=== PATIENT | male | born 1945 | race Caucasian/White ===

== ENCOUNTER 2019-10-02 03:41 | Inpatient (IN) | payer MEDICARE, OTHER ==
[~2019-10-02] VITALS: Ht 172.7 cm; Wt 73.1 kg
--- NOTE | 2019-10-02 03:45 | NUR ---
PT AAOX1, BIBRA C/O HYPERGLYCEMIC 461 UPON CHECKING. PT PLACED ON MONITOR AND PULSE OX. MD AT BEDSIDE FOR EVAL. NO ACUTE DISTRESS NOTED. VSS.
[2019-10-02] MEDS ORDERED: ACETAMINOPHEN 650 MG/SUPP.RECT RC ONE ×2 (04:02→04:30)
[2019-10-02] MEDS ORDERED: INSULIN REGULAR, HUMAN 100 UNIT/ML 10 ML VIAL ONE (04:06)
--- NOTE | 2019-10-02 04:17 | NUR ---
DEREK LEPE PT SON
[2019-10-02 04:27] LABS: ABG BASE EXCESS -1.6 mmol/L; ABG OXYGEN SATURATION 94.5 % (92.0-98.5); ABG PCO2 32.3 mmHg (35.0-45.0); ABG PH 7.445 (7.350-7.450); ABG PO2 83.9 mmHg (75.0-100.0); AaDO2 77.6 mmHg; COHb 0.9 % (0.5-1.5); MetHb 0.3 % (0.0-1.5); O2Hb 93.4 % (94.0-97.0); SITE, ABG Right Radial; VENT MODE, BG 2LNC
[2019-10-02] MEDS ORDERED: IV NS 0.9% 1,000 ML IV ONE ×2 (04:30→05:30)
[2019-10-02] MEDS ORDERED: INSULIN REGULAR, HUMAN 100 UNIT/ML 10 ML VIAL IV ONE (04:30)
--- NOTE | 2019-10-02 04:33 | NUR ---
BROUGHT TO CT
[2019-10-02 04:41] LABS: BASOPHILS # (AUTO) 0.1 /CMM (0.0-0.2); BASOPHILS % (AUTO) 0.5 % (0.0-2.0); EOSINOPHILS % (AUTO) 0.4 % (0.0-6.0); HEMATOCRIT 44 % (39-51); HEMOGLOBIN 13.3 g/dL (13.5-17.5); LYMPHOCYTES # (AUTO) 2.2 /CMM (0.8-4.8); MEAN CORPUSCULAR HGB CONC 31 g/dl (31.0-36.0); MEAN CORPUSCULAR VOLUME 80 fL (80-96); MONOCYTES # (AUTO) 1.3 /CMM (0.1-1.30); NEUTROPHILS # (AUTO) 17.8 /CMM (1.8-8.9); NEUTROPHILS % (AUTO) 83.1 % (43.0-81.0); PLATELET COUNT (AUTO) 341 /CMM (150-450); RED BLOOD CELL COUNT(AUTO) 5.46 MIL/uL (4.5-6.0); WHITE BLOOD COUNT (AUTO) 21.5 K/uL (4.3-11.0)
[2019-10-02 04:44] LABS: APPEARANCE,URINE CLEAR (CLEAR); BILIRUBIN,URINE NEGATIVE (NEGATIVE); BLOOD, URINE TRACE-INTA Ery/uL (NEGATIVE); COLOR,URINE YELLOW (YELLOW); KETONES,URINE NEGATIVE (NEGATIVE); LEUKOCYTE ESTERASE ,URINE NEGATIVE (NEGATIVE); NITRITE, URINE NEGATIVE (NEGATIVE); PH,URINE 5.5 (5.0-8.0); PROTEIN,URINE 30 mg/dl (NEGATIVE); UGLUCOSE >=1000 mg/dL (NEGATIVE); UROBILINOGEN,URINE 0.2 EU/dL (0.2)
[2019-10-02 04:53] LABS: RBC,URINE 0-2 /HPF (0-2)
[2019-10-02 04:54] LABS: BACTERIA,URINE Few /HPF (None Seen); SQUAMOUS EPITHELIAL CELL,UR Few /HPF (None Seen)
[2019-10-02 04:55] LABS: CARBON DIOXIDE 27 mmol/L (21-32); POTASSIUM 4.2 mmol/L (3.5-5.1)
[2019-10-02 04:58] LABS: ALANINE AMINOTRANSFERASE 37 U/L (12-78); ALBUMIN 2.7 g/dL (3.4-5.0); ALKALINE PHOSPHATASE 109 U/L (46-116); ASPARTATE AMINOTRANSFERASE 16 U/L (15-37); BILIRUBIN,DIRECT 0.1 mg/dL (0.0-0.2); BILIRUBIN,TOTAL 0.4 mg/dL (0.2-1.0); TOTAL PROTEIN, SERUM 8.1 g/dL (6.4-8.2)
--- NOTE | 2019-10-02 05:04 | NUR ---
LACTIC 4.8
[2019-10-02 05:07] LABS: CALCIUM, SERUM 8.3 mg/dL (8.5-10.1); CHLORIDE 120 mmol/L (98-107); CREATININE 3.4 mg/dL (0.6-1.3); GLUCOSE 519 mg/dL (74-106); SODIUM SERUM 156 mmol/L (136-145); UREA NITROGEN, BLOOD 75 mg/dL (7-18)
[2019-10-02] MEDS ORDERED: VANCOMYCIN 1 GM VIAL ONE ×2 (05:12→05:14)
[2019-10-02] MEDS ORDERED: PIPERACILLIN /TAZOBACTAM 3.375 G VIAL IV ONE (05:12)
--- NOTE | 2019-10-02 05:22 | NUR ---
DR. ROE HANKS
--- NOTE | 2019-10-02 05:24 | NUR ---
BED ASSIGNMENT 109
[2019-10-02] MEDS ORDERED: PIPERACILLIN /TAZOBACTAM 3.375 G in IV D5W 50 ML IV ONE (05:30)
[2019-10-02] MEDS ORDERED: VANCOMYCIN 1 GM in IV D5W 250 ML IV ONE (05:30)
--- NOTE | 2019-10-02 05:48 | NUR ---
REPORT GIVEN TO ELIAS PULIDO FOR BANDAR
--- NOTE | 2019-10-02 06:05 | NUR ---
PATIENT IS CLEANED WITH LUKEWARM WATER AND SOAP. PT IS TURNED CHANGED INTO CLEAN CLOTHING. PATIENT IS KEPT COMFORTABLE.
[2019-10-02 06:21] VITALS: BP 133/61
--- NOTE | 2019-10-02 06:21 | NUR ---
RN ADMITTING NOTE RECEIVED PATIENT FROM ER VIA RNEY; ADMITTING DIAGNOSIS OF PNEUMONIA, SEPSIS R/O COVID19; RESULTS PENDING. PATIENT ASLEEP, NON VERBAL BUT AROUSABLE TO TOUCH. IN NO S/SX OF ACUTE DISTRESS AT THIS TIME. NO SOB NOTED. PATIENT'S BREATHING IS EVEN AND UNLABORED, SATURATING 97% ON ROOM AIR. NOTED IV SITE ON LFA #20, RFA #18 AND RAC #20; FLUSHING AND PATENT, SALINE LOCKED. NO S/S OF INFECTION OR INFILTRATION. NOTED PERIANAL REDNESS, SCABS AT LEFT HIP AND ANTERIOR LEFT LEG, AND BILATERAL HEEL REDNESS. PICTURE TAKEN AND PLACED IN CHART. PATIENT KEPT CLEAN, DRY AND COMFORTABLE. SAFETY MEASURES IMPLEMENTED PER PROTOCOL. PATIENT BED ALARM IS ON. HEAD OF BED ELEVATED. BED IS LOCKED, IN LOWEST POSITION AND SIDE RAILS UP. CALL LIGHT WITHIN REACH OF THE PATIENT. ISOLATION PRECAUTIONS IN PLACE. WILL CONTINUE TO MONITOR AND REASSESS FOR ANY CHANGES. WILL CALL DR AU FOR ADMITTING ORDERS.
--- NOTE | 2019-10-02 06:55 | NUR ---
RN NOTE TELEPHONE CALL TO DR AU, NOTIFIED OF ADMISSION AND PROVIDED PERTINENT INFO. AWAITING MD ORDERS. WILL ENDORSE TO AM SHIFT RN FOR CONTINUATION OF CARE.
--- NOTE | 2019-10-02 07:30 | NUR ---
RN/HERMELINDO RECEIVED PATIENT IN BED. NO ACUTE DISTRESS NOTED. PATIENT AWAKE, BUT NOT ALERT. PATIENT NONVERBAL AND UNABLE TO FOLLOW INSTRUCTIONS. PATIENT ON ROOM AIR, SATURATING WELL AT 99%. PATIENT ON TELEMTRY MONITOR, SINUS RHYTHM NOTED. PATIENT RIGHT FOREARM IV ACCESS INTACT, PATENT, FLUSHED WELL. PATIENT SAFETY MAINTAINED. CALL LIGHT WITHIN REACH. WILL CONTINUE TO MONITOR.
[2019-10-02 08:00] VITALS: BP 128/68
[2019-10-02] MEDS ORDERED: MAGN400O6 PO (08:04)
[2019-10-02] MEDS ORDERED: POLY17PO4 PO (08:04)
[2019-10-02] MEDS ORDERED: LINA5TAB PO (08:04)
[2019-10-02] MEDS ORDERED: QUET25TA PO ×2 (08:04)
[2019-10-02] MEDS ORDERED: MIRT15TA7 PO (08:04)
[2019-10-02] MEDS ORDERED: SIMV-46 PO (08:04)
[2019-10-02] MEDS ORDERED: BENA20TA9 PO (08:04)
[2019-10-02] MEDS ORDERED: METO25TA20 PO (08:04)
[2019-10-02] MEDS ORDERED: NITR0.4T48 SL (08:04)
[2019-10-02] MEDS ORDERED: DOCU-270 PO (08:04)
[2019-10-02] MEDS ORDERED: MULT-24 PO (08:04)
[2019-10-02] MEDS ORDERED: NATE60TA PO (08:04)
[2019-10-02] MEDS ORDERED: NA P133E RC (08:04)
[2019-10-02] MEDS ORDERED: ACET-868 PO (08:04)
[2019-10-02] MEDS ORDERED: FOLI0.4T2 PO (08:04)
[2019-10-02] MEDS ORDERED: ISOS30TA9 PO (08:04)
[2019-10-02] MEDS ORDERED: PANT20TA2 PO (08:04)
[2019-10-02] MEDS ORDERED: CRAN3875 PO (08:04)
[2019-10-02] MEDS ORDERED: INSU100V10 SQ (08:04)
[2019-10-02] MEDS ORDERED: ASPI-1169 PO (08:04)
[2019-10-02] MEDS ORDERED: CLOP75TA15 PO (08:04)
[2019-10-02] MEDS ORDERED: MAG HYDROX/AL HYDROX/SIMETH 30 ML UDC PO PRN (08:30)
[2019-10-02] MEDS ORDERED: MAGNESIUM HYDROXIDE 30 ML UDC PO PRN ×2 (08:30)
[2019-10-02] MEDS ORDERED: DEXTROSE 50%-WATER 50 ML DISP.SYRIN IV PRN (08:30)
[2019-10-02] MEDS ORDERED: Z GUARD REMEDY 2 OZ OINT TP PRN (08:30)
[2019-10-02] MEDS ORDERED: ACETAMINOPHEN 325 MG TABLET PO PRN (08:30)
[2019-10-02] MEDS ORDERED: ONDANSETRON HCL/PF 4 MG/2 ML VIAL IVP PRN (08:30)
[2019-10-02] MEDS ORDERED: ZOLPIDEM TARTRATE 5 MG TABLET PO PRN (08:30)
[2019-10-02] MEDS: ASPIRIN 81 MG TAB.CHEW PO SCH (09:00)
[2019-10-02] MEDS: PANTOPRAZOLE 40 MG/PACK PACK PO SCH (09:00)
[2019-10-02] MEDS: METOPROLOL TARTRATE 25 MG TABLET PO SCH (09:00)
[2019-10-02] MEDS: CLOPIDOGREL BISULFATE 75 MG TABLET PO SCH (09:00)
[2019-10-02] MEDS: DOCUSATE SODIUM 100 MG CAPSULE PO SCH ×2 (09:00→17:00)
[2019-10-02] MEDS: POLYETHYLENE GLYCOL 3350 17 GM POWD.PACK PO SCH (09:00)
[2019-10-02] MEDS: LINAGLIPTIN 5 MG TABLET PO SCH (09:00)
[2019-10-02] MEDS: QUETIAPINE FUMARATE 25 MG TABLET PO SCH ×4 (09:00→22:00)
[2019-10-02] MEDS: NATEGLINIDE 60 MG TABLET PO SCH ×3 (09:00→17:00)
[2019-10-02] MEDS: BLOOD SUGAR DIAGNOSTIC 1 EACH STRIP IN SCH ×4 (09:03→21:50)
[2019-10-02] MEDS: INSULIN REGULAR, HUMAN 100 UNIT/ML 3 ML VIAL SQ PRN ×3 (09:16→22:06)
[2019-10-02] MEDS ORDERED: IV D5/0.45 NACL 1,000 ML IV ONE (10:00)
--- NOTE | 2019-10-02 10:14 | NUR ---
RN/HERMELINDO PATIENT AWAKE, BUT NOT ALERT. PATIENT UNABLE TO FOLLOW INSTRUCTIONS. PATIENT UNABLE TO SWALLOW DUE TO RISK FOR ASPIRATION. SO NON-ADMINISTERED MONRING PO MEDICATIONS. ORDERING SWALLOW EVALUATION. DOCTOR DEVIKA NOTIFIED.
[2019-10-02 11:59] LABS: C-REACTIVE PROTEIN 9.1 mg/dL (0.0-0.9)
[2019-10-02 12:00] VITALS: BP 118/76
--- NOTE | 2019-10-02 13:30 | NUR ---
SPEECH THERAPIST (AVELINA) TO DO SWALLOW EVALUATION TOMORROW MORNING. STATES THAT PATIENT NOT ALERT DUE TO MENTAL STATUS IN ORDER TO EVALUATE. PHYSICAL THERAPIST TO CONSULT TOMORROW MORNING WELL.
--- NOTE | 2019-10-02 14:47 | NUR ---
RN/HERMELINDO PATIENT IN STABLE CONDITION. ENDORSED PLAN OF CARE TO IQRA FOR CONTINUITY OF CARE
[2019-10-02 16:00] VITALS: BP 121/74
--- NOTE | 2019-10-02 16:15 | NUR ---
RN OPENING NOTE PT RECEIVED IN BED , RESPONSIVE TO LIGHT PAIN, NO S/S OF DISTRESS, SAFETY MEASURES IN PLACE , WILL CONTINUE TO MONITOR.
--- NOTE | 2019-10-02 18:01 | NUR ---
Patient is poor historian, has hx of Alzheimer's dementia,resides at [facility] [place] [phone]. He requires max to total assist with adl's. Current dc plan is to return to SNF when discharge. Addendum: 10/02/19 at 1802 by SUGAR ARMAS RN Amended: Links added.
--- NOTE | 2019-10-02 19:20 | NUR ---
RN CLOSING NOTE PT REMAINED STABLE REPORT GIVEN TO INCOMING SHIFT FOR BANDAR.
--- NOTE | 2019-10-02 19:30 | NUR ---
RN NOTES RECEIVED PT. AWAKE. ON BED, A/OX2, NOT IN DISTRESS, NO PAIN NOTED, BED IN LOW POSITION F/C DRAINING CLEAR YELLOW URINE, SIDERAILSUPX2, CONTINUE TO MONITOR
[2019-10-02 20:00] VITALS: BP 110/59
--- NOTE | 2019-10-02 21:00 | NUR ---
RN NOTES PT. WAS TRANSFERRED TO [facility], PT. IS COVID NEGATIVE,EVENING CARE RENDERED, PT. IS NOT IN DISTRESS, NO PAIN NOTED, BEDSIDE REPORT WAS GIVEN TO RN FABIO .
[2019-10-02 21:15] VITALS: BP 123/83
--- NOTE | 2019-10-02 21:15 | NUR ---
MS RN NOTES RECEIVED REPORT FROM TESS CANDELARIA,TRANSFER FROM TELE1,ALERT X1,CONFUSED,WITH DIAGNOSIS OF PNA/SEPSIS.COVID TEST NEGATIVE.NOTED PATIENT HAVING COUGH AND SLIGHT TEMP 99.4,WITH SALINE LOCK LEFT FOREARM #20 INTACT AND PATENT.NPO STATUS FOR SWALLOW EVAL IN THE MORNING.TRYING TO GET OUT OF BED.PLACE IN ROOM 309-1 WITH SITTER.WILL CONTINUE TO MONITOR STATUS.
--- NOTE | 2019-10-02 21:25 | NUR ---
MS RN NOTES MD FORTUNE WAS PAGE, AWAITING TO CALL BACK.
--- NOTE | 2019-10-02 21:30 | NUR ---
MS RN NOTES DR FORTUNE CALLED,MADE AWARE THAT PATIENT ON NPO STATUS,WITH ORDER FOR IVF AND SITTER FOR SAFETY NOTED AND CARRIED OUT.
--- NOTE | 2019-10-02 21:49 | NUR ---
MS RN NOTES STARTED ON NS AT 75ML/HR RATE ORDERED.
--- NOTE | 2019-10-02 21:50 | NUR ---
MS RN NOTES STARTED ON MAXIPIME 1GM IVPB ORDERED,
[2019-10-02] MEDS ORDERED: IV NS 0.9% 1,000 ML IV PRN (22:00)
[2019-10-02] MEDS: SIMVASTATIN 20 MG TABLET PO SCH (22:00)
[2019-10-02] MEDS ORDERED: CEFEPIME 1 GM in IV D5W 50 ML IV SCH (22:00)
[2019-10-02] MEDS: INSULIN GLARGINE, 100 UNIT/ML CARTRIDGE SQ SCH (22:00)
[2019-10-02] MEDS: MIRTAZAPINE 15 MG TABLET PO SCH (22:00)
--- NOTE | 2019-10-02 22:30 | NUR ---
MS PULIDO NOTES ACCU-CHECK BLOOD SUGAR CHECK 209,HUMULIN R 3 UNITS AND LANTUS 15 UNITS HELD,NPO STATUS,FOR SWALLOW EVAL IN THE MORNING Addendum: 10/03/19 at 0133 by FABIO HOBSON RN HUMULIN 4 UNITS HELD
[2019-10-02] MEDS: DOXYCYCLINE 100 MG in IV NS 0.9% 100 ML IV SCH (23:00)
--- NOTE | 2019-10-02 23:00 | NUR ---
MS RN NOTES STARTED ON VIBRAMYCIN IV ORDERED.
--- NOTE | 2019-10-03 00:30 | NUR ---
MS RN NOTES SALINE LOCK RIGHT FOREARM INFILTRATED,NEW SALINE LOCK PLACE ON RIGHT FORE ARM #20.
[2019-10-03] MEDS ORDERED: ACETAMINOPHEN 650 MG/SUPP.RECT RC PRN (02:00)
--- NOTE | 2019-10-03 05:30 | NUR ---
MS RN NOTES ACCU-CHECK BLOOD SUGAR CHECK 221,HUMULIN R 4 UNITS HELD,PATIENT IS TOTALLY NOTHING BY MOUTH,HIG RISK FOR ASPIRATION.FOR SWALLOW EVALUATION TODAY.
[2019-10-03] MEDS: BLOOD SUGAR DIAGNOSTIC 1 EACH STRIP IN SCH ×4 (05:33→21:59)
[2019-10-03] MEDS: INSULIN REGULAR, HUMAN 100 UNIT/ML 3 ML VIAL SQ PRN ×2 (05:34→22:00)
--- NOTE | 2019-10-03 06:13 | NUR ---
MS RN NOTES ON BED CALM THIS TIME,DVT PUMP IN USED FOR DVT SCORE OF 5.ON PLAVIX BUT WILL ENDORSE TO DAY NURSE TO FOLLOW WITH MD FOR DVT CHEMICAL PROPHYLAXIS.SITTER AT BEDSIDE FOR SAFETY.MORNING CARE ADMINISTER BY APOLINAR GUY TOLERATED WELL.IVF INFUSING WELL ON RFA IV ACCESS.KEPT NPO ORDERED TILL SEEN BY ST FOR SWALLOW EVAL.IN NO ACUTE DISTRESS.LATEST ORAL TEMPERATURE 99.4.IN NO ACUTE DISTRESS.WILL ENDORSE TO DAY NURSE FOR BANDAR.
[2019-10-03 06:55] LABS: BASOPHILS # (AUTO) 0.1 /CMM (0.0-0.2); BASOPHILS % (AUTO) 0.4 % (0.0-2.0); EOSINOPHILS % (AUTO) 1.3 % (0.0-6.0); HEMATOCRIT 39 % (39-51); HEMOGLOBIN 12.1 g/dL (13.5-17.5); LYMPHOCYTES # (AUTO) 1.9 /CMM (0.8-4.8); LYMPHOCYTES % (AUTO) 11.3 % (20.0-44.0); MEAN CORPUSCULAR HGB CONC 31 g/dl (31.0-36.0); MEAN CORPUSCULAR VOLUME 79 fL (80-96); MONOCYTES % (AUTO) 6.1 % (2.0-12.0); NEUTROPHILS # (AUTO) 13.2 /CMM (1.8-8.9); NEUTROPHILS % (AUTO) 80.9 % (43.0-81.0); PLATELET COUNT (AUTO) 258 /CMM (150-450); RED BLOOD CELL COUNT(AUTO) 4.97 MIL/uL (4.5-6.0); WHITE BLOOD COUNT (AUTO) 16.4 K/uL (4.3-11.0)
[2019-10-03] MEDS: PANTOPRAZOLE 40 MG/PACK PACK PO SCH (07:30)
--- NOTE | 2019-10-03 07:30 | NUR ---
rn notes patient received on 2L nasal cannula, a/o x0-1, enamorado present and is draining. NPO at this time and has a swallow eval pending. NS @ 75 ml per hour @ FA 20. Bed at the lowest setting, call light within reach, side rails up x2.
[2019-10-03 07:48] LABS: CALCIUM, SERUM 7.7 mg/dL (8.5-10.1); CREATININE 1.8 mg/dL (0.6-1.3); GLUCOSE 286 mg/dL (74-106); MAGNESIUM 2.3 mg/dL (1.8-2.4); PHOSPHORUS 3.2 mg/dL (2.5-4.9); UREA NITROGEN, BLOOD 46 mg/dL (7-18)
[2019-10-03 07:53] LABS: CARBON DIOXIDE 24 mmol/L (21-32)
[2019-10-03] MEDS: ASPIRIN 81 MG TAB.CHEW PO SCH (08:09)
[2019-10-03 08:10] LABS: SODIUM SERUM 161 mmol/L (136-145)
[2019-10-03] MEDS: DOCUSATE SODIUM 100 MG CAPSULE PO SCH ×2 (08:10→16:26)
[2019-10-03] MEDS: QUETIAPINE FUMARATE 25 MG TABLET PO SCH ×4 (08:10→22:00)
[2019-10-03] MEDS: METOPROLOL TARTRATE 25 MG TABLET PO SCH (08:10)
[2019-10-03] MEDS: POLYETHYLENE GLYCOL 3350 17 GM POWD.PACK PO SCH (08:10)
[2019-10-03] MEDS: CLOPIDOGREL BISULFATE 75 MG TABLET PO SCH (08:10)
[2019-10-03 08:11] LABS: CHLORIDE 126 mmol/L (98-107)
[2019-10-03] MEDS: NATEGLINIDE 60 MG TABLET PO SCH ×3 (08:11→16:26)
[2019-10-03] MEDS: LINAGLIPTIN 5 MG TABLET PO SCH (08:11)
--- NOTE | 2019-10-03 08:46 | NUR ---
WOUND CARE CONSULT: PT PRESENTS WITH DRY SCRATCHES AND SURGICAL SCAR TO LOWER BACK/SACRUM, PRESENT ON ADMISSION. POWELL CATH NOTED. PT MOVES IN BED ALMOST CONSTANTLY. SITTER AT BEDSIDE. WILL SEE PRN.
[2019-10-03] MEDS: CEFEPIME 2 GM in IV D5W 100 ML IV SCH (09:23)
[2019-10-03] MEDS: IV 1/2NS 1000 ML 1,000 ML IV SCH (11:00)
[2019-10-03] MEDS: DOXYCYCLINE 100 MG in IV NS 0.9% 100 ML IV SCH ×2 (12:00→22:13)
[2019-10-03 12:36] LABS: CHOLESTEROL 112 mg/dL (<200); CREATINE KINASE, TOTAL 537 U/L (39-308); HDL CHOLESTEROL 26 mg/dL (40-60); LDL 55 mg/dL (0-99); TRIGLYCERIDES 131 mg/dL (30-150)
--- NOTE | 2019-10-03 17:55 | NUR ---
rn notes patient remains on 2L nasal cannula, a/o x0-1, enamorado present and is draining. NPO at this time and has a swallow eval pending. NS @ 75 ml per hour @ FA 20. Bed at the lowest setting, call light within reach, side rails up x2.
[2019-10-03 20:00] VITALS: BP 123/55
--- NOTE | 2019-10-03 20:00 | NUR ---
MS RN OPENING NOTE: Patient in bed, awake, and constantly moving, pulling on his IV line and enamorado catheter. Patient needs constant redirecting. Noted right forearm IV access, flushes well; patent, no redness, or infiltration, and dressing is intact. Patient is combative. Patient threw multiple punches as I was flushing IV access. Noted enamorado catheter, draining well, urine color clear yellow. SCDs on bilaterally. On room air, breathing well. No SOB, no distress noted. Breathing equal and unlabored. Safety precaution in place, bed in lowest level, brakes are on, side rails x2 are up, alarm is on, and call light is within reach. Will continue to monitor.
--- NOTE | 2019-10-03 21:57 | NUR ---
MS RN NOTE: Patient glucose 220. Patient is NPO. Will non-administer insulin to prevent hypoglycemic episode.
[2019-10-03] MEDS: SIMVASTATIN 20 MG TABLET PO SCH (22:00)
[2019-10-03] MEDS: MIRTAZAPINE 15 MG TABLET PO SCH (22:00)
[2019-10-03] MEDS: INSULIN GLARGINE, 100 UNIT/ML CARTRIDGE SQ SCH (22:00)
--- NOTE | 2019-10-03 22:03 | NUR ---
MS RN NOTE: Patient NPO. Non-administered insulin Lantus to prevent hypoglycemic event.
[2019-10-04] MEDS: IV 1/2NS 1000 ML 1,000 ML IV SCH (00:14)
[2019-10-04] MEDS: BLOOD SUGAR DIAGNOSTIC 1 EACH STRIP IN SCH ×4 (06:39→22:54)
[2019-10-04] MEDS: INSULIN REGULAR, HUMAN 100 UNIT/ML 3 ML VIAL SQ PRN ×4 (06:41→23:22)
--- NOTE | 2019-10-04 06:42 | NUR ---
MS RN NOTE: Patient Glucose 221. Patient is NPO. Non-administered insulin to prevent hypoglycemic episode.
--- NOTE | 2019-10-04 06:43 | NUR ---
MS RN CLOSING NOTE: Patient in bed sleeping comfortably but moves extremities constantly. SCDs on bilaterally, BLE circulating well, cap refill <3 seconds, warm to touch, pedal pulses present. On room air, breathing well. No SOB, no distress noted. Breathing equal and unlabored. Safety precaution in place, bed in lowest level, brakes are on, side rails x2 are up, alarm is on, and call light is within reach. Will endorse to next shift.
[2019-10-04 06:55] LABS: BASOPHILS # (AUTO) 0.1 /CMM (0.0-0.2); BASOPHILS % (AUTO) 0.5 % (0.0-2.0); EOSINOPHILS % (AUTO) 3.5 % (0.0-6.0); HEMATOCRIT 37 % (39-51); HEMOGLOBIN 11.6 g/dL (13.5-17.5); LYMPHOCYTES # (AUTO) 1.8 /CMM (0.8-4.8); LYMPHOCYTES % (AUTO) 14.7 % (20.0-44.0); MEAN CORPUSCULAR HGB CONC 31 g/dl (31.0-36.0); MEAN CORPUSCULAR VOLUME 79 fL (80-96); MONOCYTES # (AUTO) 0.8 /CMM (0.1-1.30); MONOCYTES % (AUTO) 6.8 % (2.0-12.0); NEUTROPHILS # (AUTO) 9.2 /CMM (1.8-8.9); NEUTROPHILS % (AUTO) 74.5 % (43.0-81.0); PLATELET COUNT (AUTO) 229 /CMM (150-450); WHITE BLOOD COUNT (AUTO) 12.3 K/uL (4.3-11.0)
--- NOTE | 2019-10-04 07:17 | NUR ---
MS RN OPENING NOTES RECEIVED PT AWAKE IN BED IN NO ACUTE SIGNS OF DISTRESS. HOB ELEVATED. A/O X0.OPEN HIS EYES AND RESPONSIVE TO TACTILE STIMULI. PT IS QUIET AND CONFUSED AT THIS TIME, NO NO S/S OF PAIN OR FACIAL GRIMACES NOTED AT THIS TIME. ON ROOM AIR, BREATHING EVEN AND UNLABORED. IV ACCESS ON RFA G#20 INTACT AND PATENT, IVF OF 1/2 NS @ 75ML/HR INFUSING WELL, NO REDNESS OR S/S OF INFILTRATION AT SITE NOTED. POWELL IN PLACE DRAINING CLEAR YELLOW URINE VIA GRAVITY. SAFETY MEASURES IN PLACE: BED IN LOW LOCKED POSITION WITH SIDE-RAILS UP X2. WILL CONTINUE TO MONITOR PT ACCORDINGLY.
[2019-10-04] MEDS: PANTOPRAZOLE 40 MG/PACK PACK PO SCH (07:26)
[2019-10-04 07:28] LABS: PTH, INTACT 63 pg/mL (15-65)
[2019-10-04 08:00] VITALS: BP 140/72
[2019-10-04] MEDS: CEFEPIME 2 GM in IV D5W 100 ML IV SCH ×2 (08:05→21:14)
[2019-10-04 08:23] LABS: CREATININE KINASE (CK),MB 3.7 ng/mL (0.0-10.4)
[2019-10-04] MEDS: DOCUSATE SODIUM 100 MG CAPSULE PO SCH ×2 (08:41→17:00)
[2019-10-04] MEDS: ASPIRIN 81 MG TAB.CHEW PO SCH (08:41)
[2019-10-04] MEDS: METOPROLOL TARTRATE 25 MG TABLET PO SCH (08:42)
[2019-10-04] MEDS: POLYETHYLENE GLYCOL 3350 17 GM POWD.PACK PO SCH (08:42)
[2019-10-04] MEDS: LINAGLIPTIN 5 MG TABLET PO SCH (08:43)
[2019-10-04] MEDS: NATEGLINIDE 60 MG TABLET PO SCH ×3 (08:43→17:00)
[2019-10-04] MEDS: CLOPIDOGREL BISULFATE 75 MG TABLET PO SCH (08:43)
[2019-10-04] MEDS: QUETIAPINE FUMARATE 25 MG TABLET PO SCH ×4 (08:43→21:10)
--- NOTE | 2019-10-04 10:10 | NUR ---
RN NOTES PT NOTED WITH REDDISH DISCOLORATION ON RIGHT FOREARM ON ASSESSMENT. PHOTO WAS TAKEN AND FILED ON HIS CHART. WILL CONTINUE TO MONITOR.
[2019-10-04] MEDS: IV D5W 1,000 ML IV PRN (10:17)
[2019-10-04] MEDS: DOXYCYCLINE 100 MG in IV NS 0.9% 100 ML IV SCH (10:35)
[2019-10-04 11:17] LABS: ALANINE AMINOTRANSFERASE 26 U/L (12-78); ALBUMIN 2.1 g/dL (3.4-5.0); ALKALINE PHOSPHATASE 66 U/L (46-116); ASPARTATE AMINOTRANSFERASE 28 U/L (15-37); BILIRUBIN,TOTAL 0.6 mg/dL (0.2-1.0); CALCIUM, SERUM 8.1 mg/dL (8.5-10.1); CARBON DIOXIDE 20 mmol/L (21-32); CHLORIDE 123 mmol/L (98-107); CREATININE 1.5 mg/dL (0.6-1.3); GLUCOSE 265 mg/dL (74-106); MAGNESIUM 2.5 mg/dL (1.8-2.4); PHOSPHORUS 2.4 mg/dL (2.5-4.9); POTASSIUM 3.9 mmol/L (3.5-5.1); TOTAL PROTEIN, SERUM 6.9 g/dL (6.4-8.2); UREA NITROGEN, BLOOD 36 mg/dL (7-18)
[2019-10-04 11:50] LABS: SODIUM SERUM 157 mmol/L (136-145)
--- NOTE | 2019-10-04 12:29 | NUR ---
RN NOTES RECEIVED CALL FROM AMMONIA REFRIGERATION TECHNICIAN HEIDI HONG THAT PT REMAINS WITH HIGH NA LEVEL 157 BUT DOWN FROM [address] VAUGHAN MADE AWARE, NO NEW ORDER MADE AT THIS TIME. WILL CONTINUE TO MONITOR.
--- NOTE | 2019-10-04 13:30 | NUR ---
RN NOTES PT NOTED WITH DISLODGED IV ACCESS ON RFA G #20. NO BLEEDING AT SITE NOTED. NEW IV ACCESS INSERTED TO LFA G #22 AND PROPERLY SECURED WITH TAPE. IVF OF D5W @125ML/HR CONTINUES. WILL CONTINUE TO MONITOR.
[2019-10-04 16:00] VITALS: BP 135/82
[2019-10-04] MEDS ORDERED: K PHOS NEUTRAL 250 MG TABLET PO ONE (16:00)
[2019-10-04] MEDS: POTASSIUM PHOSPHATE MM 7.5 MMOL in IV NS 0.9% 100 ML IV SCH ×2 (17:06→19:22)
--- NOTE | 2019-10-04 18:41 | NUR ---
MS RN CLOSING NOTES PT IN BED AWAKE AT THIS TIME. ALERT AND ORIENTED X0. CONFUSED AND MUMBLES WORDS AT TIMES. ON ROOM AIR, TOLERATING WELL WITH NO SOB NOTED THROUGHOUT THE DAY. IV ACCESS ON LFA G#22 INTACT AND PATENT, POTASSIUM PHOSPHATE IV INFUSING WELL ORDERED, NO REDNESS OR S/S OF INFILTRATIONS NOTED AT SITE. POWELL CATHETER IN PLACE, DRAINING CLEAR YELLOW URINE VIA GRAVITY, POWELL CARE DONE. PT TURNED AND REPOSITIONED Q 2HRS AND PRN. ALL NEEDS AND CARE PROVIDED WELL. SAFETY MEASURES IN PLACE: HOB KEPT ELEVATED TO PREVENT ASPIRATION. BED IN LOW LOCKED POSITION WITH SIDE-RAILS UP X2. [facility]AR.
--- NOTE | 2019-10-04 19:28 | NUR ---
MS RN OPENING NOTES RECEIVED PATIENT RESTING IN BED COMFORTABLY; A/OX0, BREATHING EVEN AND UNLABORED; ON ROOM AIR, TOLERATING WELL; NO SOB NOTED; SITTER AT BEDSIDE; L FA # 22, INTACT AND PATENT, FLUSHING WELL; NO S/S OF REDNESS OR INFILTRATION NOTED; PER DAY SHIFT, KEEP NPO UNTIL PASSES SWALLOW EVAL; POWELL IN PLACE, WITH YELLOW OUTPUT; SAFETY PRECAUTIONS IMPLEMENTED; BED LOCKED IN LOW POSITION; SIDE RAILSX2; WILL CONT TO MONITOR
--- NOTE | 2019-10-04 19:43 | NUR ---
MS RN NOTES ENDORSED BANDAR TO TESS TINAJERO
[2019-10-04 20:00] VITALS: BP_SYST 126; BP_SYST 142; BP_DIAS 51; BP_DIAS 75
--- NOTE | 2019-10-04 20:00 | NUR ---
RN NOTES PATIENT IN BED, ALERT TO SELF ONLY, RESTLESS AT TIMES, CONFUSED, ROOM AIR, NO COMPLAIN OF PAIN, DNR, POWELL CATHETER DRAINING WELL, NPO DUE TO DYSPHAGIA, D5W AT 125 ML/HR, WILL CONTINUE TO MONITOR
[2019-10-04] MEDS: MIRTAZAPINE 15 MG TABLET PO SCH (21:10)
[2019-10-04] MEDS: SIMVASTATIN 20 MG TABLET PO SCH (21:10)
[2019-10-04] MEDS: INSULIN GLARGINE, 100 UNIT/ML CARTRIDGE SQ SCH (23:30)
[2019-10-05] MEDS: DOXYCYCLINE 100 MG in IV NS 0.9% 100 ML IV SCH ×3 (00:31→22:12)
[2019-10-05] MEDS: IV D5W 1,000 ML IV PRN ×2 (05:36→18:28)
[2019-10-05] MEDS: BLOOD SUGAR DIAGNOSTIC 1 EACH STRIP IN SCH ×4 (06:31→21:56)
[2019-10-05] MEDS: INSULIN REGULAR, HUMAN 100 UNIT/ML 3 ML VIAL SQ PRN ×4 (06:32→22:02)
--- NOTE | 2019-10-05 06:36 | NUR ---
RN NOTES ALERT TO SELF, CONFUSED, RESTLESS, ON ROOM AIR, NOT IN APPARENT PAIN, NPO DUE TO DYSPHAGIA, D5W AT 125ML/HR, ONE ON ONE SITTER FOR SAFETY, FOR VIDEO SWALLOW EVAL AND WOUND CARE CONSULT, CONTINUE HOSPITALIZATION, IV ABX FOR SEPSIS, SON REFUSED PEG TUBE PLACEMENT PER PHONE CONVERSATION, MD RECOMMENDS HOSPICE CARE.
[2019-10-05 06:42] LABS: BASOPHILS % (AUTO) 0.3 % (0.0-2.0); HEMATOCRIT 39 % (39-51); HEMOGLOBIN 12.3 g/dL (13.5-17.5); LYMPHOCYTES # (AUTO) 1.6 /CMM (0.8-4.8); LYMPHOCYTES % (AUTO) 19.1 % (20.0-44.0); MEAN CORPUSCULAR HGB CONC 32 g/dl (31.0-36.0); MEAN CORPUSCULAR VOLUME 79 fL (80-96); MONOCYTES # (AUTO) 0.5 /CMM (0.1-1.30); MONOCYTES % (AUTO) 6.6 % (2.0-12.0); NEUTROPHILS # (AUTO) 5.8 /CMM (1.8-8.9); PLATELET COUNT (AUTO) 200 /CMM (150-450); RED BLOOD CELL COUNT(AUTO) 4.95 MIL/uL (4.5-6.0); WHITE BLOOD COUNT (AUTO) 8.2 K/uL (4.3-11.0)
[2019-10-05 07:19] LABS: ALBUMIN 2.1 g/dL (3.4-5.0); BILIRUBIN,TOTAL 0.6 mg/dL (0.2-1.0); CALCIUM, SERUM 8.4 mg/dL (8.5-10.1); CREATININE 1.3 mg/dL (0.6-1.3); MAGNESIUM 2.4 mg/dL (1.8-2.4); PHOSPHORUS 2.7 mg/dL (2.5-4.9); POTASSIUM 3.6 mmol/L (3.5-5.1); TOTAL PROTEIN, SERUM 8.3 g/dL (6.4-8.2)
[2019-10-05] MEDS: PANTOPRAZOLE 40 MG/PACK PACK PO SCH (07:30)
[2019-10-05] MEDS: ASPIRIN 81 MG TAB.CHEW PO SCH (09:00)
[2019-10-05] MEDS: DOCUSATE SODIUM 100 MG CAPSULE PO SCH ×2 (09:00→16:41)
[2019-10-05] MEDS: CLOPIDOGREL BISULFATE 75 MG TABLET PO SCH (09:00)
[2019-10-05] MEDS: QUETIAPINE FUMARATE 25 MG TABLET PO SCH ×4 (09:00→21:40)
[2019-10-05] MEDS: LINAGLIPTIN 5 MG TABLET PO SCH (09:00)
[2019-10-05] MEDS: NATEGLINIDE 60 MG TABLET PO SCH ×3 (09:00→16:41)
[2019-10-05] MEDS: POLYETHYLENE GLYCOL 3350 17 GM POWD.PACK PO SCH (09:00)
[2019-10-05] MEDS: CEFEPIME 2 GM in IV D5W 100 ML IV SCH ×2 (10:23→20:30)
[2019-10-05] MEDS: METOPROLOL TARTRATE 25 MG TABLET PO SCH (10:27)
--- NOTE | 2019-10-05 18:38 | NUR ---
MS RN NOTES PATIENT IN BED RESTING NO SOB OR ACUTE DISTRESS NOTED. ALL DUE MEDICATIONS ADMINISTERED. ALL NEEDS MET. PATIENT WITH SITTER AT BEDSIDE. PATIENT REMOVED PERIPHERAL IV, NEW PERIPHERAL IV STARTED ON LEFT FOREARM G22. WILL ENDORSE CARE TO PM SHIFT.
--- NOTE | 2019-10-05 19:00 | NUR ---
RN medsurg opening notes Received Pt from morning nurse. Pt is resting in bed comfortably with a sitter at the bed side. Pt is alert and orientedX1. Respiration in even and normal. No SOB. No S/S of distress noted. IV sites at LFA# 22 is clean, intact and infusing well D5W@ 125 ml/hr. Duenas cath is intact and draining cloudy yellow urine. Keep Pt clean, dry and comfortable. Safety precautions is maintained. Bed at low position, brakes locked, side railsupX2 and call light is within reach. Will continue to monitor.
[2019-10-05 20:00] VITALS: BP 146/72
--- NOTE | 2019-10-05 20:56 | NUR ---
RN medsurg notes Pt is trying to pull IV and enamorado cath. Informed and educate Pt. Pt is non compliant and keep trying to pull IV tubing and enamorado cath several times. Informed and notified ALEJANDRA Cade. [facility] SPECIALISTS ordered bilateral soft wrist restraints. Charge nurse is aware and informed. Will continue to monitor.
[2019-10-05] MEDS: MIRTAZAPINE 15 MG TABLET PO SCH (21:39)
[2019-10-05] MEDS: SIMVASTATIN 20 MG TABLET PO SCH (21:40)
[2019-10-05] MEDS: INSULIN GLARGINE, 100 UNIT/ML CARTRIDGE SQ SCH (22:00)
--- NOTE | 2019-10-05 22:02 | NUR ---
RN medsurg notes Held lantus 15 units because NPO diagnose and Pt failed swallow eval. Pt's blood sugar was 190. Charge nurse is aware and notified. Will continue to monitor.
[2019-10-06] MEDS: IV D5W 1,000 ML IV PRN (04:41)
[2019-10-06] MEDS: BLOOD SUGAR DIAGNOSTIC 1 EACH STRIP IN SCH ×2 (06:30→12:56)
[2019-10-06] MEDS: INSULIN REGULAR, HUMAN 100 UNIT/ML 3 ML VIAL SQ PRN ×2 (06:32→12:56)
--- NOTE | 2019-10-06 06:46 | NUR ---
RN medsurg closing notes Pt is resting in bed comfortably. Pt is alert and orientedX1. Respiration in even and normal. No SOB. No S/S of distress noted. VS is stable. Afebrile. IV sites at LFA# 22 is clean, intact and infusing well D5W@ 125 ml/hr. Duenas cath is intact and draining cloudy yellow urine. Bilateral soft wrist restraints in in placed, skin is warm to touch and circulation is check. Kept Pt clean, dry and comfortable. All needs met and attended. Safety precautions is maintained. Bed at low position, brakes locked, side railsupX2 and call light is within reach. Will endorse to morning nurse for BANDAR.
[2019-10-06] MEDS: PANTOPRAZOLE 40 MG/PACK PACK PO SCH (07:30)
[2019-10-06 08:00] VITALS: BP 133/64
--- NOTE | 2019-10-06 08:00 | NUR ---
MS RN NOTES PATIENT IN BED RESTING NO SOB OR ACUTE DISTRESS NOTED. PATIENT ALERT, ORIENTED X1. CONFUSED. ON SOFT WRIST RESTRAINTS FOR SAFETY. PERIPHERAL IV INTACT PATENT. SAFETY PRECAUTIONS IN PLACE WILL CONTINUE TO MONITOR.
[2019-10-06 08:32] LABS: BASOPHILS % (AUTO) 0.5 % (0.0-2.0); EOSINOPHILS % (AUTO) 3.4 % (0.0-6.0); HEMATOCRIT 40 % (39-51); HEMOGLOBIN 12.7 g/dL (13.5-17.5); LYMPHOCYTES # (AUTO) 1.3 /CMM (0.8-4.8); LYMPHOCYTES % (AUTO) 17.6 % (20.0-44.0); MEAN CORPUSCULAR HGB CONC 32 g/dl (31.0-36.0); MEAN CORPUSCULAR VOLUME 78 fL (80-96); MONOCYTES # (AUTO) 0.5 /CMM (0.1-1.30); MONOCYTES % (AUTO) 6.6 % (2.0-12.0); NEUTROPHILS # (AUTO) 5.4 /CMM (1.8-8.9); NEUTROPHILS % (AUTO) 71.9 % (43.0-81.0); PLATELET COUNT (AUTO) 195 /CMM (150-450); RED BLOOD CELL COUNT(AUTO) 5.16 MIL/uL (4.5-6.0); WHITE BLOOD COUNT (AUTO) 7.5 K/uL (4.3-11.0)
[2019-10-06 09:00] VITALS: BP 133/64
[2019-10-06] MEDS: ASPIRIN 81 MG TAB.CHEW PO SCH (09:00)
[2019-10-06] MEDS: QUETIAPINE FUMARATE 25 MG TABLET PO SCH ×2 (09:00→13:00)
[2019-10-06] MEDS: METOPROLOL TARTRATE 25 MG TABLET PO SCH (09:00)
[2019-10-06] MEDS: NATEGLINIDE 60 MG TABLET PO SCH ×2 (09:00→13:00)
[2019-10-06] MEDS: LINAGLIPTIN 5 MG TABLET PO SCH (09:00)
[2019-10-06] MEDS: DOCUSATE SODIUM 100 MG CAPSULE PO SCH (09:00)
[2019-10-06] MEDS: POLYETHYLENE GLYCOL 3350 17 GM POWD.PACK PO SCH (09:00)
[2019-10-06] MEDS: CLOPIDOGREL BISULFATE 75 MG TABLET PO SCH (09:00)
[2019-10-06] MEDS: CEFEPIME 2 GM in IV D5W 100 ML IV SCH (09:16)
[2019-10-06] MEDS ORDERED: CEFE1VIA3 IJ (09:23)
[2019-10-06 09:34] LABS: CALCIUM, SERUM 8.4 mg/dL (8.5-10.1); CREATININE 1.3 mg/dL (0.6-1.3); POTASSIUM 3.3 mmol/L (3.5-5.1)
[2019-10-06] MEDS: DOXYCYCLINE 100 MG in IV NS 0.9% 100 ML IV SCH (11:13)
[2019-10-06] MEDS: POTASSIUM CL. PREMIX PERIPHER. 50 ML IV SCH ×2 (12:49→13:47)
--- NOTE | 2019-10-06 13:00 | NUR ---
MS RN NOTES CALLED [facility] REPORT GIVEN TO VIVIAN PULIDO. CALLED PATIENTS JESSICA REED NOTIFIED OF PATIENTS DISCHARGE. PATIENT IN STABLE CONDITION WILL CONTINUE TO MONITOR. WAITING FOR AMBULANCE.
--- NOTE | 2019-10-06 15:30 | NUR ---
MS RN NOTES PATIENT DISCHARGED TO [facility] VIA AMBULANCE. IN STABLE CONDITION. PERIPHERAL IV INTACT PATENT. PATIENT WITH NO BELONGINGS.
[2019-10-07 06:13] LABS: *SPE A/G RATIO 0.6 (0.7-1.7); *SPE ALBUMIN 2.3 g/dL (2.9-4.4); *SPE ALPHA-1-GLOBULIN 0.3 g/dL (0.0-0.4); *SPE BETA GLOBULIN 0.7 g/dL (0.7-1.3); *SPE GLOBULIN, TOTAL 3.8 g/dL (2.2-3.9); *SPE M-SPIKE Not Observed g/dL (Not Observed); *SPEGAMMA GLOBULIN 1.7 g/dL (0.4-1.8)
== END 2019-10-06 15:30 | DRG 177 ==
LOC: ER 03:41 → TELE1 05:36 → MEDSG1 19:09 → MED 21:13
PROVIDERS: ADMIT Internal Medicine; ATTEND Internal Medicine
DX: J69.0 Pneumonitis due to inhalation of food and vomit (principal); N17.0 Acute kidney failure with tubular necrosis; G92 Toxic encephalopathy; J96.01 Acute respiratory failure with hypoxia; E11.10 Type 2 diabetes mellitus with ketoacidosis without coma; E43 Unspecified severe protein-calorie malnutrition; I13.0 Hypertensive heart and chronic kidney disease with heart failure and stage 1 through stage 4 chronic kidney disease, or unspecified chronic kidney disease; N39.0 Urinary tract infection, site not specified; E87.0 Hyperosmolality and hypernatremia; F02.81 Dementia in other diseases classified elsewhere, unspecified severity, with behavioral disturbance; E11.65 Type 2 diabetes mellitus with hyperglycemia; I25.10 Atherosclerotic heart disease of native coronary artery without angina pectoris; K21.9 Gastro-esophageal reflux disease without esophagitis; E86.0 Dehydration; I50.9 Heart failure, unspecified; N18.9 Chronic kidney disease, unspecified; E11.22 Type 2 diabetes mellitus with diabetic chronic kidney disease; E86.1 Hypovolemia; G30.9 Alzheimer's disease, unspecified; Z95.1 Presence of aortocoronary bypass graft; D63.8 Anemia in other chronic diseases classified elsewhere; E88.09 Other disorders of plasma-protein metabolism, not elsewhere classified; Z68.24 Body mass index [BMI] 24.0-24.9, adult
CPT/HCPCS: 36415; 36600; 70450-TC; 71045-TC; 80048-TC; 80053-TC; 80061-TC; 80076-TC; 81000-TC; 82010-TC; 82550-TC; 82553; 82728-TC; 82803-TC; 82962-TC; 83605-TC; 83735-TC; 83970; 84100-TC; 84155; 84165; 84484-TC; 85025-TC; 85378-TC; 85730-TC; 86140-TC; 87040-TC; 87081-TC; 87086-TC; 92526; 92611-TC; 93307-TC; 97110-TC; 97112-TC; 97530-TC; A6253; C9803-CS; G0378; J0692; J1815; J2543; J3370; J3480; J3490; J7030; J7050; J7060; J7070; U0003-CS

== ENCOUNTER 2019-11-27 07:56 | Inpatient (IN) | payer MEDICARE, OTHER ==
[~2019-11-27] VITALS: Ht 172.7 cm; Wt 72.6 kg
[~2019-11-27 07:56] MED LIST: ACET-868 PO; BENA20TA9 PO; CEFE1VIA3 IJ; CRAN3875 PO; DOCU-270 PO; FOLI0.4T2 PO; INSU100V10 SQ; ISOS30TA9 PO; LINA5TAB PO; MAGN400O6 PO; METO25TA20 PO; MIRT15TA7 PO; MULT-24 PO; NA P133E RC; NATE60TA PO; NITR0.4T48 SL; PANT40TA2 PO; POLY17PO4 PO; QUET25TA PO; SIMV-46 PO
--- NOTE | 2019-11-27 08:00 | NUR ---
ER BED 7 PT [place] CAME FROM [facility], PER REPORT PT HAD A SEIZURE EPISODE AROUND 630AM. WITNESSED BY STAFF. PT IS AOX1. CONFUSED. VS CHECKED. PT IS AT HIS BASELINE MENTAL STATUS. AWAITING MD LARA.
--- NOTE | 2019-11-27 08:55 | NUR ---
Awaiting Admission/bed No acute changes Status quo. Vs to routine
[2019-11-27 09:02] LABS: CALCIUM, SERUM 9.1 mg/dL (8.5-10.1); CARBON DIOXIDE 29 mmol/L (21-32); CHLORIDE 100 mmol/L (98-107); CREATININE 1.2 mg/dL (0.6-1.3); GLUCOSE 149 mg/dL (74-106); POTASSIUM 4.1 mmol/L (3.5-5.1); SODIUM SERUM 137 mmol/L (136-145); UREA NITROGEN, BLOOD 10 mg/dL (7-18)
[2019-11-27 09:06] LABS: BASOPHILS % (AUTO) 0.3 % (0.0-2.0); EOSINOPHILS % (AUTO) 0.6 % (0.0-6.0); HEMATOCRIT 40 % (39-51); HEMOGLOBIN 12.7 g/dL (13.5-17.5); LYMPHOCYTES # (AUTO) 1.1 /CMM (0.8-4.8); MEAN CORPUSCULAR HGB CONC 32 g/dl (31.0-36.0); MEAN CORPUSCULAR VOLUME 78 fL (80-96); MONOCYTES # (AUTO) 0.5 /CMM (0.1-1.30); MONOCYTES % (AUTO) 4.1 % (2.0-12.0); NEUTROPHILS # (AUTO) 10.5 /CMM (1.8-8.9); PLATELET COUNT (AUTO) 421 /CMM (150-450); WHITE BLOOD COUNT (AUTO) 12.2 K/uL (4.3-11.0)
[2019-11-27 09:09] LABS: ACETAMINOPHEN 0 ug/ml (10-30); ALANINE AMINOTRANSFERASE 14 U/L (12-78); ALKALINE PHOSPHATASE 95 U/L (46-116); ASPARTATE AMINOTRANSFERASE 14 U/L (15-37); BILIRUBIN,DIRECT 0.2 mg/dL (0.0-0.2); BILIRUBIN,TOTAL 0.5 mg/dL (0.2-1.0); SALICYLATE 1.2 mg/dL (2.8-20.0); TOTAL PROTEIN, SERUM 8.8 g/dL (6.4-8.2)
[2019-11-27 09:13] LABS: SERUM AMMONIA 11 umol/L (11-32)
[2019-11-27 09:26] LABS: THYROID STIMULATING HORMONE 0.934 uIU/mL (0.358-3.74)
[2019-11-27] MEDS ORDERED: IV NS 0.9% 500 ML BAG IV ONE (09:30)
[2019-11-27 09:53] LABS: APPEARANCE,URINE Clear (CLEAR); BILIRUBIN,URINE Negative (NEGATIVE); BLOOD, URINE Small Ery/uL (NEGATIVE); COLOR,URINE Yellow (YELLOW); KETONES,URINE Negative (NEGATIVE); LEUKOCYTE ESTERASE ,URINE Moderate (NEGATIVE); NITRITE, URINE Negative (NEGATIVE); PH,URINE 8.5 (5.0-8.0); PROTEIN,URINE 30 mg/dl (NEGATIVE); UGLUCOSE Negative (NEGATIVE)
[2019-11-27 09:54] LABS: BACTERIA,URINE Few /HPF (None Seen); SQUAMOUS EPITHELIAL CELL,UR Rare /HPF (None Seen)
--- NOTE | 2019-11-27 10:13 | NUR ---
NURSING SUP GAVE TELE 203.
[2019-11-27] MEDS ORDERED: PIPERACILLIN /TAZOBACTAM 3.375 G VIAL IV ONE (10:19)
--- NOTE | 2019-11-27 10:29 | NUR ---
Pt going to Room 207 Report given to TESS Estrada- No Seizure activity noted Stable for transfer to floor
[2019-11-27] MEDS ORDERED: LEVOFLOXACIN 750 MG /D5W 150ML 150 ML IV ONE ×2 (10:30→10:38)
[2019-11-27] MEDS ORDERED: IV NS 0.9% 1,000 ML BAG IV ONE (10:30)
[2019-11-27] MEDS ORDERED: PIPERACILLIN /TAZOBACTAM 3.375 G in IV D5W 50 ML IV ONE (10:30)
[2019-11-27 11:00] VITALS: BP 139/81
--- NOTE | 2019-11-27 11:00 | NUR ---
PALM AND BACK FORGER NOTES ADMITTED FROM EMERGENCY DEPARTMENT REPORT GIVEN BY WALTER.PATIENT PATIENT NON VERBAL, EYES OPEN, RESPOND TO TACTILE STIMULI, NO ACUTE DISTRESS NOTED. BREATHING UNLABORED. NO SOB NOTED. IV ACCESS PATENT AND INTACT, NO REDNESS, NO SWELLING NOTED. PLACED FOOD AND BEVERAGE COORDINATOR, NORMAL SINUS RHYTHM. SAFETY MEASURES IN PLACE. CALL LIGHT WITHIN REACH. WILL CONTINUE TO MONITOR ACCORDINGLY.
--- NOTE | 2019-11-27 12:24 | NUR ---
LINUX SERVER ADMINISTRATOR NOTES SPOKE WITH DR ORI FORTUNE, AWARE OF PATIENT ADMISSION, CLARIFIED DIET AND ADMISSION ORDERS, WITH NEW ORDER FOR PUREED CONSISTENT CARB STANDARD , CARDIAC , LARGE PORTION , NO PORK DIET, ORDER CLARIFIED AND READ BACK WITH MD, NOTED AND CARRIED OUT. PER DR ORI FORTUNE , HE WILL PUT IN THE REST OF THE ADMISSION ORDERS.
[2019-11-27] MEDS ORDERED: HYDROCODONE/APAP 5/325MG TABLET PO PRN (13:00)
[2019-11-27] MEDS ORDERED: ACETAMINOPHEN 325 MG TABLET PO PRN (13:00)
[2019-11-27] MEDS ORDERED: MAGNESIUM HYDROXIDE 30 ML UDC PO PRN (13:00)
[2019-11-27] MEDS ORDERED: NA PHOS,M-B/NA PHOS,DI-BA 1 EA ENEMA RC PRN (13:00)
[2019-11-27] MEDS ORDERED: MAG HYDROX/AL HYDROX/SIMETH 30 ML UDC PO PRN (13:00)
[2019-11-27] MEDS ORDERED: ONDANSETRON HCL/PF 4 MG/2 ML VIAL IVP PRN (13:00)
[2019-11-27] MEDS ORDERED: ZOLPIDEM TARTRATE 5 MG TABLET PO PRN (13:00)
[2019-11-27] MEDS ORDERED: Z GUARD REMEDY 2 OZ OINT TP PRN (13:00)
[2019-11-27] MEDS ORDERED: NITROGLYCERIN 0.4 MG/TAB BOTTLE SL PRN (13:00)
[2019-11-27] MEDS: QUETIAPINE FUMARATE 25 MG TABLET PO SCH ×2 (13:25→18:00)
--- NOTE | 2019-11-27 13:35 | NUR ---
INFRASTRUCTURE SECURITY ARCHITECT NOTES CALLED PHARMACY SPOKE WITH JASON REGARDING STARLIX NOT AVAILABLE ON THE FLOOR SAID THEY WILL BRING MEDICATION ON THE FLOOR.
[2019-11-27] MEDS: ENOXAPARIN SODIUM 30 MG/0.3 ML DISP.SYRIN SQ SCH (13:55)
[2019-11-27] MEDS: NATEGLINIDE 60 MG TABLET PO SCH ×2 (14:28→18:00)
[2019-11-27 16:00] VITALS: BP 117/68
[2019-11-27] MEDS ORDERED: Medication Not On Formulary EA (Cran/Vitc/Mannose/Inulin/Brom (Uti-Stat Liquid) 30 ML) PO SCH (17:00)
[2019-11-27] MEDS: DOCUSATE SODIUM 100 MG CAPSULE PO SCH (18:00)
[2019-11-27] MEDS: PANTOPRAZOLE 40 MG TABLET.DR PO SCH (18:00)
--- NOTE | 2019-11-27 18:57 | NUR ---
TAPE LIBRARIAN NOTES PATIENT IN BED AWAKE. NO ACUTE DISTRESS NOTED. BREATHING UNLABORED. NO SOB NOTED.SAFETY MEASURES IN PLACE. HEAD OF BED ELEVATED. NEEDS ATTENDED AND ANTICIPATED. KEPT CLEAN DRY AND COMFORTABLE.CALL LIGHT WITHIN REACH. WILL ENDORSE TO NIGHT NURSE FOR CONTINUITY OF CARE.
[2019-11-27 20:00] VITALS: BP 144/78
--- NOTE | 2019-11-27 20:49 | NUR ---
MS2/RN DURING INITIAL ASSESSMENT, PATIENT WAS ON BED WITH EYES CLOSED, APPEAR SLEEPING, APPEAR COMFORTABLE, BREATHING EVEN AND UNLABORED, NO SIGNS OF DISTRESS NOTED, AFEBRILE, CALL LIGHT IN REACH, FALL PRECAUTIONS PER PROTOCOL, WILL MONITOR.
[2019-11-27] MEDS: INSULIN GLARGINE, 100 UNIT/ML CARTRIDGE SQ SCH (22:00)
[2019-11-27] MEDS: SIMVASTATIN 20 MG TABLET PO SCH (22:40)
[2019-11-27] MEDS: MIRTAZAPINE 15 MG TABLET PO SCH (22:41)
[2019-11-27] MEDS ORDERED: DEXTROSE 50%-WATER 50 ML DISP.SYRIN IV PRN (23:00)
--- NOTE | 2019-11-27 23:07 | NUR ---
MS2/RN OBTAINED ORDER FOR BLOOD SUGAR CHECK FROM DR. FORTUNE. ACCU CHECK = 119, LANTUS INSULIN 15 UNITS NOT ADMINISTERED PATIENT REFUSES TO EAT. WILL MONITOR.
[2019-11-28] VITALS (8 sets, daily range): BP systolic 91–140; BP diastolic 55–80
[2019-11-28] MEDS: BLOOD SUGAR DIAGNOSTIC 1 EACH STRIP IN SCH ×5 (01:07→22:33)
[2019-11-28] MEDS ORDERED: ZOSYN IVPB 3.375 G in IV D5W 50ml IV ONE (03:45)
[2019-11-28] MEDS ORDERED: PIPERACILLIN /TAZOBACTAM 3.375 G VIAL IV ONE (03:52)
[2019-11-28] MEDS ORDERED: VANCOMYCIN 1 GM VIAL ONE ×2 (03:52→03:54)
[2019-11-28] MEDS: IV 1/2NS 1000 ML 1,000 ML IV PRN ×2 (04:02→16:54)
[2019-11-28] MEDS ORDERED: VANCOMYCIN 1.5 GM in IV D5W 500ml IV ONE (04:15)
[2019-11-28] MEDS ORDERED: PIPERACILLIN /TAZOBACTAM 3.375 G in IV D5W 50 ML IV SCH (05:00)
--- NOTE | 2019-11-28 05:57 | NUR ---
MS2/RN PATIENT IS SLEEPING AT THIS TIME, COMFORTABLE, NO SIGNS OF DISTRESS NOTED, ALL NEEDS ATTENDED AT THIS TIME, WILL CONTINUE TO MONITOR.
[2019-11-28 06:33] LABS: BASOPHILS # (AUTO) 0.1 /CMM (0.0-0.2); BASOPHILS % (AUTO) 0.8 % (0.0-2.0); EOSINOPHILS % (AUTO) 1.2 % (0.0-6.0); HEMATOCRIT 35 % (39-51); HEMOGLOBIN 11.4 g/dL (13.5-17.5); LYMPHOCYTES % (AUTO) 19.4 % (20.0-44.0); MEAN CORPUSCULAR HGB CONC 33 g/dl (31.0-36.0); MEAN CORPUSCULAR VOLUME 77 fL (80-96); MONOCYTES # (AUTO) 0.8 /CMM (0.1-1.30); MONOCYTES % (AUTO) 8.1 % (2.0-12.0); NEUTROPHILS # (AUTO) 7.3 /CMM (1.8-8.9); NEUTROPHILS % (AUTO) 70.5 % (43.0-81.0); PLATELET COUNT (AUTO) 360 /CMM (150-450); RED BLOOD CELL COUNT(AUTO) 4.55 MIL/uL (4.5-6.0); WHITE BLOOD COUNT (AUTO) 10.3 K/uL (4.3-11.0)
[2019-11-28 07:06] LABS: CALCIUM, SERUM 8.7 mg/dL (8.5-10.1); CREATININE 1.2 mg/dL (0.6-1.3); PHOSPHORUS 3.8 mg/dL (2.5-4.9); POTASSIUM 4.3 mmol/L (3.5-5.1)
--- NOTE | 2019-11-28 07:20 | NUR ---
DIRECTOR OF INSTRUCTION NOTES RECEIVED PATIENT IN BED ASLEEP, AROUSABLE TO VERBAL AND TACTILE STIMULI. HOB ELEVATED. ON ROOM AIR WITH SPO2 OF 98%. NO SOB/COUGH. LEFT HAND #20 INTACT AND PATENT INFUSING NS @ 75 ML/HR. BED IN LOWEST POSITION, LOCKED. BED ALARM ON. CALL LIGHT WITHIN REACH. SEIZURE PRECAUTIONS IN PLACE. FREQUENT VISUAL CHECK DONE.
--- NOTE | 2019-11-28 07:22 | NUR ---
TEL MONITORING NOTES ON TELE MONITORING SR:85
[2019-11-28] MEDS: INSULIN REGULAR, HUMAN 100 UNIT/ML 3 ML VIAL SQ PRN ×3 (07:51→22:41)
[2019-11-28] MEDS: PANTOPRAZOLE 40 MG TABLET.DR PO SCH ×2 (09:08→16:32)
[2019-11-28] MEDS: BENAZEPRIL HCL 10 MG TABLET PO SCH (09:08)
[2019-11-28] MEDS: LINAGLIPTIN 5 MG TABLET PO SCH (09:08)
[2019-11-28] MEDS: FOLIC ACID 1 MG TABLET PO SCH (09:08)
[2019-11-28] MEDS: NATEGLINIDE 60 MG TABLET PO SCH ×3 (09:08→16:31)
[2019-11-28] MEDS: DOCUSATE SODIUM 100 MG CAPSULE PO SCH ×2 (09:09→16:31)
[2019-11-28] MEDS: MULTIVITAMINS,THERAGRAN 1 UDTAB TABLET PO SCH (09:09)
[2019-11-28] MEDS: QUETIAPINE FUMARATE 25 MG TABLET PO SCH ×3 (09:09→16:32)
[2019-11-28] MEDS: METOPROLOL TARTRATE 25 MG TABLET PO SCH (09:09)
[2019-11-28] MEDS: ISOSORBIDE DINITRATE (10MG) 10 MG TABLET PO SCH (10:00)
[2019-11-28] MEDS: PIPERACILLIN /TAZOBACTAM 3.375 G in IV D5W 100 ML IV SCH ×2 (10:30→17:17)
--- NOTE | 2019-11-28 11:52 | NUR ---
PARTS INTERPRETER NOTES CALLED AND SPOKE TO SON DEREK, PER SON PATIENT HAS CONSENTED TO THE FLU VACCINE AT [facility] BUT UNCERTAIN IF PATIENT RECEIVED IT. CALLED [facility] AND SPOKE TO INFECTION CONTROL NURSEDEBORA. PER INFECTION CONTROL NURSE PATIENT HAS NOT RECEIVED THE VACCINE BECAUSE PATIENT LEFT FACILITY BEFORE THEY CAN GIVE IT.
[2019-11-28] MEDS: ENOXAPARIN SODIUM 30 MG/0.3 ML DISP.SYRIN SQ SCH (12:16)
[2019-11-28] MEDS: VANCOMYCIN 1 GM in IV D5W 250 ML IV SCH (17:17)
--- NOTE | 2019-11-28 18:15 | NUR ---
TRANSFORMER SHOP SUPERVISOR NOTES PATIENT NEGATIVE FOR COVID TRANSFERRED TO ROOM 327-1 VIA ACLS PROTOCOL. BEDSIDE REPORT GIVEN TO ANTOINETTE. PATIENT IN NO APPARENT DISTRESS.
--- NOTE | 2019-11-28 18:17 | NUR ---
DENTAL OFFICER NOTES RECEIVED PATIENT FROM MS 2 , REPORT GIVEN BY IZZY PULIDO , ANNABELLA AWAKE. NO ACUTE DISTRESS NOTED. BREATHING UNLABORED. NO SOB NOTED.SAFETY MEASURES IN PLACE. HEAD OF BED ELEVATED.VITAL SIGNS STABLE .CALL LIGHT WITHIN REACH. WILL CONTINUE TO MONITOR ACCORDINGLY.
--- NOTE | 2019-11-28 19:00 | NUR ---
NUTS AND BOLTS ASSEMBLER NOTES PATIENT IN BED AWAKE. NO ACUTE DISTRESS NOTED. BREATHING UNLABORED. NO SOB NOTED.SAFETY MEASURES IN PLACE. HEAD OF BED ELEVATED.VITAL SIGNS STABLE .CALL LIGHT WITHIN REACH. WILL CONTINUE TO MONITOR ACCORDINGLY.
--- NOTE | 2019-11-28 20:00 | NUR ---
RN NOTES PM SHIFT RECEIVED PATIENT IN BED, ALERT AND AWAKE, NON-VERBAL, NOT IN DISTRESS, TOLERATING ROOM AIR, KEPT SAFE, CALL LIGHT WITHIN REACH
[2019-11-28] MEDS: MIRTAZAPINE 15 MG TABLET PO SCH (22:33)
[2019-11-28] MEDS: SIMVASTATIN 20 MG TABLET PO SCH (22:33)
[2019-11-28] MEDS: INSULIN GLARGINE, 100 UNIT/ML CARTRIDGE SQ SCH (22:53)
[2019-11-29] VITALS: BP 100/48
[2019-11-29] MEDS: PIPERACILLIN /TAZOBACTAM 3.375 G in IV D5W 100 ML IV SCH ×3 (01:17→17:54)
[2019-11-29] MEDS: VANCOMYCIN 1 GM in IV D5W 250 ML IV SCH (06:13)
[2019-11-29] MEDS: INSULIN REGULAR, HUMAN 100 UNIT/ML 3 ML VIAL SQ PRN ×3 (06:42→22:22)
[2019-11-29] MEDS: BLOOD SUGAR DIAGNOSTIC 1 EACH STRIP IN SCH ×4 (06:43→22:21)
--- NOTE | 2019-11-29 07:01 | NUR ---
RN NOTES PM SHIFT ALERT AND AWAKE, NON VERBAL AT TIMES, SPEAKS A LITTLE, NO SOB, STABLE ON ROOM AIR, NOT IN APPARENT PAIN, SEIZURE PRECAUTION, BUTTOCKS REDNESS RESOLVING, CONTINUE ZOSYN, AND VANCOMYCIN, CONTINUE HYDRATION, MONITOR FOR GI BLEED AND H/H. SUPPORTIVE CARE. BG 70 MG/DL, NO INSULIN GIVEN, ORANGE JUICE GIVEN. NO S/S OF HYPOGLYCEMIA.
--- NOTE | 2019-11-29 07:30 | NUR ---
GROUP HOME COUNSELOR NOTES PT IN BED, AWAKE, NON VERBAL, NO SIGN OF PAIN OR DISTRESS, CALL LIGHT WITHIN REACH, IV FLUIDS INFUSING WELL, SEIZURE PRECAUTIONS OBSERVED, KEPT COMFORTABLE.
[2019-11-29 08:00] VITALS: BP 141/68
[2019-11-29] MEDS: QUETIAPINE FUMARATE 25 MG TABLET PO SCH ×3 (08:11→16:30)
[2019-11-29] MEDS: PANTOPRAZOLE 40 MG TABLET.DR PO SCH ×2 (08:11→16:31)
[2019-11-29] MEDS: LINAGLIPTIN 5 MG TABLET PO SCH (08:11)
[2019-11-29] MEDS: NATEGLINIDE 60 MG TABLET PO SCH ×3 (08:11→16:30)
[2019-11-29] MEDS: FOLIC ACID 1 MG TABLET PO SCH (08:11)
[2019-11-29] MEDS: DOCUSATE SODIUM 100 MG CAPSULE PO SCH ×2 (08:11→16:30)
[2019-11-29] MEDS: ISOSORBIDE DINITRATE (10MG) 10 MG TABLET PO SCH (08:11)
[2019-11-29] MEDS: MULTIVITAMINS,THERAGRAN 1 UDTAB TABLET PO SCH (08:11)
[2019-11-29] MEDS: METOPROLOL TARTRATE 25 MG TABLET PO SCH (08:12)
[2019-11-29] MEDS: BENAZEPRIL HCL 10 MG TABLET PO SCH (08:12)
[2019-11-29 08:35] LABS: BASOPHILS # (AUTO) 0.1 /CMM (0.0-0.2); BASOPHILS % (AUTO) 0.7 % (0.0-2.0); EOSINOPHILS % (AUTO) 2.3 % (0.0-6.0); HEMATOCRIT 34 % (39-51); HEMOGLOBIN 11.3 g/dL (13.5-17.5); LYMPHOCYTES % (AUTO) 21.1 % (20.0-44.0); MEAN CORPUSCULAR HGB CONC 33 g/dl (31.0-36.0); MEAN CORPUSCULAR VOLUME 77 fL (80-96); MONOCYTES # (AUTO) 0.9 /CMM (0.1-1.30); MONOCYTES % (AUTO) 9.1 % (2.0-12.0); NEUTROPHILS # (AUTO) 6.3 /CMM (1.8-8.9); NEUTROPHILS % (AUTO) 66.8 % (43.0-81.0); PLATELET COUNT (AUTO) 354 /CMM (150-450); RED BLOOD CELL COUNT(AUTO) 4.46 MIL/uL (4.5-6.0); WHITE BLOOD COUNT (AUTO) 9.4 K/uL (4.3-11.0)
[2019-11-29 08:49] LABS: ALBUMIN 2.5 g/dL (3.4-5.0); BILIRUBIN,TOTAL 0.6 mg/dL (0.2-1.0); CALCIUM, SERUM 8.5 mg/dL (8.5-10.1); CREATININE 1.3 mg/dL (0.6-1.3); MAGNESIUM 2.2 mg/dL (1.8-2.4); PHOSPHORUS 3.7 mg/dL (2.5-4.9); POTASSIUM 3.4 mmol/L (3.5-5.1); TOTAL PROTEIN, SERUM 7.7 g/dL (6.4-8.2)
[2019-11-29] MEDS ORDERED: POTASSIUM CHLORIDE 20 MEQ POWDER PACKET NG SCH (10:00)
[2019-11-29] MEDS: IV 1/2NS 1000 ML 1,000 ML IV PRN (11:09)
[2019-11-29] MEDS: ENOXAPARIN SODIUM 30 MG/0.3 ML DISP.SYRIN SQ SCH (12:11)
--- NOTE | 2019-11-29 13:14 | NUR ---
UNDERWATER PHOTOGRAPHER NOTES PT IN BED, AWAKE, NON VERBAL, NO SIGN OF PAIN OR DISTRESS, STILL WITH LEAKING AT GT SITE, DR. Irina MACHUCA INFORMED, KEPT PT CLEAN AND DRY, IV FLUIDS INFUSING, DUE MEDS GIVEN ORDERED. Addendum: 11/29/19 at 1317 by KYRA MARTINEZ RN PLS DISREGARD ABOVE NOTE, MEANT FOR A DIFFERENT PATIENT.
--- NOTE | 2019-11-29 13:18 | NUR ---
STEEL LAYOUT WORKER NOTES PT IN BED, AWAKE, ALERT TO SELF, NO SIGN OF PAIN OR DISTRESS, IV FLUIDS INFUSING WELL, DUE MEDS GIVEN, SEIZURE PRECAUTIONS OBSERVED, ASSISTED WITH MEALS, TOLERATING WELL, KEPT CLEAN AND DRY IN BED.
[2019-11-29 16:00] VITALS: BP 141/64
[2019-11-29] MEDS: VANCOMYCIN 0.75 GM in IV D5W 250 ML IV SCH (18:08)
--- NOTE | 2019-11-29 18:32 | NUR ---
MEDICAL CASH POSTER NOTES PT IN BED, AWAKE, ALERT TO SELF, WITH CONFUSION, NO SIGN OF PAIN OR DISTRESS, TOLERATES ROOM AIR, IV FLUIDS INFUSING WELL, CALL LIGHT WITHIN REACH, SEEN BY DR. FORTUNE, GAVE UPDATES TO PT'S SON DEREK REGARDING PT PLAN OF CARE, VERBALIZED UNDERSTANDING, ASSISTED WITH MEALS, TOLERATES WELL, PM CARE PROVIDED.
--- NOTE | 2019-11-29 20:10 | NUR ---
RN NOTES RECEIVED PATIENT IN BED, ALERT AND ORIENTED X1, NON-VERBAL AT TIMES, NOT IN APPARENT DISTRESS, CALM, ROOM AIR, KEPT SAFE, WILL CONTINUE TO MONITOR
[2019-11-29] MEDS: MUPIROCIN OINT 2% 22 GM TUBE NS SCH (20:29)
[2019-11-29 22:00] VITALS: BP 121/59
[2019-11-29] MEDS: SIMVASTATIN 20 MG TABLET PO SCH (22:03)
[2019-11-29] MEDS: MIRTAZAPINE 15 MG TABLET PO SCH (22:04)
[2019-11-29] MEDS: INSULIN GLARGINE, 100 UNIT/ML CARTRIDGE SQ SCH (22:24)
[2019-11-30] VITALS (7 sets, daily range): BP systolic 99–162; BP diastolic 51–89
--- NOTE | 2019-11-30 | NUR ---
RECEIVED IN BED EYES CLOSED WHEN NAME CALLED DID NOT OPEN EYES BUT DID SAY "WHAT" HE DRANK A SIP OF WATER FROM A STRAW BED ALARM ON
[2019-11-30] MEDS: PIPERACILLIN /TAZOBACTAM 3.375 G in IV D5W 100 ML IV SCH ×3 (01:48→18:54)
[2019-11-30] MEDS: VANCOMYCIN 0.75 GM in IV D5W 250 ML IV SCH ×2 (05:45→17:48)
--- NOTE | 2019-11-30 06:32 | NUR ---
RN NOTES ALERT AND AWAKE, NON-VERBAL, TALKS VERY SELDOM, STABLE ON ROOM AIR, NOT IN APPARENT DISTRESS, VOIDING GOOD, HX OF UPPER GI BLEED, MONITOR H/H AND BLEEDING, MRSA (+), BACTROBAN APPLIED TO NARES, CONTINUE ZOSYN AND VANCOMYCIN. PER PLAN OF CARE, NEURO CONSULT, EEG, PT/OT EVAL, AM LABS.
[2019-11-30] MEDS: BLOOD SUGAR DIAGNOSTIC 1 EACH STRIP IN SCH ×4 (06:34→21:35)
[2019-11-30] MEDS: INSULIN REGULAR, HUMAN 100 UNIT/ML 3 ML VIAL SQ PRN (06:35)
--- NOTE | 2019-11-30 07:15 | NUR ---
Pt is resting in bed comfortably. Pt is non verbal oriented x1. IV line intact and patent. Safety precautions is maintained. Bed at low position, brakes locked, side rails upX3, HOB elevated, call light is within reach. Will continue to monitor.
[2019-11-30] MEDS: BENAZEPRIL HCL 10 MG TABLET PO SCH (08:22)
[2019-11-30] MEDS: LINAGLIPTIN 5 MG TABLET PO SCH (08:22)
[2019-11-30] MEDS: DOCUSATE SODIUM 100 MG CAPSULE PO SCH ×2 (08:23→17:04)
[2019-11-30] MEDS: FOLIC ACID 1 MG TABLET PO SCH (08:23)
[2019-11-30 08:24] LABS: BASOPHILS # (AUTO) 0.1 /CMM (0.0-0.2); BASOPHILS % (AUTO) 1.2 % (0.0-2.0); EOSINOPHILS % (AUTO) 3.4 % (0.0-6.0); HEMATOCRIT 30 % (39-51); HEMOGLOBIN 9.6 g/dL (13.5-17.5); LYMPHOCYTES # (AUTO) 1.6 /CMM (0.8-4.8); LYMPHOCYTES % (AUTO) 21.9 % (20.0-44.0); MEAN CORPUSCULAR HGB CONC 33 g/dl (31.0-36.0); MEAN CORPUSCULAR VOLUME 78 fL (80-96); MONOCYTES # (AUTO) 0.7 /CMM (0.1-1.30); MONOCYTES % (AUTO) 9.2 % (2.0-12.0); NEUTROPHILS # (AUTO) 4.8 /CMM (1.8-8.9); NEUTROPHILS % (AUTO) 64.3 % (43.0-81.0); PLATELET COUNT (AUTO) 328 /CMM (150-450); RED BLOOD CELL COUNT(AUTO) 3.82 MIL/uL (4.5-6.0); WHITE BLOOD COUNT (AUTO) 7.5 K/uL (4.3-11.0)
[2019-11-30] MEDS: PANTOPRAZOLE 40 MG TABLET.DR PO SCH ×2 (08:24→17:03)
[2019-11-30] MEDS: ISOSORBIDE DINITRATE (10MG) 10 MG TABLET PO SCH (08:24)
[2019-11-30] MEDS: METOPROLOL TARTRATE 25 MG TABLET PO SCH (08:24)
[2019-11-30] MEDS: NATEGLINIDE 60 MG TABLET PO SCH ×3 (08:24→17:03)
[2019-11-30] MEDS: QUETIAPINE FUMARATE 25 MG TABLET PO SCH ×3 (08:27→17:03)
[2019-11-30] MEDS: MULTIVITAMINS,THERAGRAN 1 UDTAB TABLET PO SCH (08:27)
[2019-11-30 09:01] LABS: ALANINE AMINOTRANSFERASE 12 U/L (12-78); ALBUMIN 2.2 g/dL (3.4-5.0); ALKALINE PHOSPHATASE 57 U/L (46-116); ASPARTATE AMINOTRANSFERASE 12 U/L (15-37); BILIRUBIN,TOTAL 0.4 mg/dL (0.2-1.0); CALCIUM, SERUM 8.2 mg/dL (8.5-10.1); CARBON DIOXIDE 25 mmol/L (21-32); CHLORIDE 102 mmol/L (98-107); CREATININE 1.4 mg/dL (0.6-1.3); GLUCOSE 132 mg/dL (74-106); MAGNESIUM 2.2 mg/dL (1.8-2.4); PHOSPHORUS 3.5 mg/dL (2.5-4.9); POTASSIUM 3.6 mmol/L (3.5-5.1); SODIUM SERUM 136 mmol/L (136-145); TOTAL PROTEIN, SERUM 6.5 g/dL (6.4-8.2); UREA NITROGEN, BLOOD 7 mg/dL (7-18)
[2019-11-30] MEDS: MUPIROCIN OINT 2% 22 GM TUBE NS SCH ×2 (09:30→20:58)
[2019-11-30] MEDS: ENOXAPARIN SODIUM 30 MG/0.3 ML DISP.SYRIN SQ SCH (12:21)
--- NOTE | 2019-11-30 13:50 | NUR ---
Patient consulted by kenny Beckford
[2019-11-30] MEDS ORDERED: VALPROATE IV STA (13:57)
[2019-11-30] MEDS ORDERED: D5W IV STA (13:57)
[2019-11-30] MEDS: DIVALPROEX SODIUM 250 MG TABLET.DR PO SCH ×2 (14:16→20:57)
--- NOTE | 2019-11-30 18:38 | NUR ---
Patient in bed ,resting comfortably. Breathing unlabored and even , not in any distress. All needs attended. Patient kept clean and comfortable. Noted with good appetite. Meds needs to be crush. Safety precautions implemented, call light within reach. Will endorse to next shift for BANDAR
[2019-11-30] MEDS ORDERED: INSULIN GLARGINE, 100 UNIT/ML CARTRIDGE SQ ONE (21:37)
[2019-11-30] MEDS: MIRTAZAPINE 15 MG TABLET PO SCH (21:37)
[2019-11-30] MEDS: SIMVASTATIN 20 MG TABLET PO SCH (21:37)
[2019-11-30] MEDS: INSULIN GLARGINE, 100 UNIT/ML CARTRIDGE SQ SCH (21:45)
[2019-12-01] MEDS: PIPERACILLIN /TAZOBACTAM 3.375 G in IV D5W 100 ML IV SCH ×3 (01:36→18:14)
--- NOTE | 2019-12-01 04:16 | NUR ---
CLOSING NOTES: ASLEEP THRU MUCH OF THIS SHIFT. WHEN NAME SPOKEMN LOUDLY WILL SAY "WHAT" BUT OTHERWISE HE DOESN'T TALK. DOES NOT LIKE TO BE CLEANED OUT AND MADE DRY AFTER HE IS INCONTINENT WILL BECOME AGITATED. NO SOB COMFORTABLE THRU THE NIGHT
[2019-12-01] MEDS: VANCOMYCIN 0.75 GM in IV D5W 250 ML IV SCH ×2 (06:07→17:13)
[2019-12-01] MEDS: BLOOD SUGAR DIAGNOSTIC 1 EACH STRIP IN SCH ×4 (06:22→21:35)
[2019-12-01 07:48] LABS: BASOPHILS # (AUTO) 0.1 /CMM (0.0-0.2); BASOPHILS % (AUTO) 0.9 % (0.0-2.0); EOSINOPHILS % (AUTO) 4.6 % (0.0-6.0); HEMATOCRIT 31 % (39-51); HEMOGLOBIN 10.2 g/dL (13.5-17.5); LYMPHOCYTES # (AUTO) 2.1 /CMM (0.8-4.8); LYMPHOCYTES % (AUTO) 25.2 % (20.0-44.0); MEAN CORPUSCULAR HGB CONC 33 g/dl (31.0-36.0); MEAN CORPUSCULAR VOLUME 77 fL (80-96); MONOCYTES # (AUTO) 0.7 /CMM (0.1-1.30); MONOCYTES % (AUTO) 7.9 % (2.0-12.0); NEUTROPHILS # (AUTO) 5.1 /CMM (1.8-8.9); NEUTROPHILS % (AUTO) 61.4 % (43.0-81.0); PLATELET COUNT (AUTO) 347 /CMM (150-450); RED BLOOD CELL COUNT(AUTO) 4.04 MIL/uL (4.5-6.0); WHITE BLOOD COUNT (AUTO) 8.3 K/uL (4.3-11.0)
[2019-12-01 08:00] VITALS: BP 110/64
--- NOTE | 2019-12-01 08:00 | NUR ---
m/s cook vegetable: initial assessment received pt in bed awake, alert to self only. still resistive to care despite reality orientation provided prn. continue on seizure precaution and maintained. no apparent distress noted. will continue to monitor.
[2019-12-01 08:24] LABS: VALPROIC ACID 42 ug/mL (50-100)
[2019-12-01 08:26] LABS: ALANINE AMINOTRANSFERASE 10 U/L (12-78); ALBUMIN 2.2 g/dL (3.4-5.0); ALKALINE PHOSPHATASE 57 U/L (46-116); ASPARTATE AMINOTRANSFERASE 14 U/L (15-37); BILIRUBIN,TOTAL 0.4 mg/dL (0.2-1.0); CALCIUM, SERUM 8.1 mg/dL (8.5-10.1); CARBON DIOXIDE 27 mmol/L (21-32); CHLORIDE 103 mmol/L (98-107); CREATININE 1.5 mg/dL (0.6-1.3); GLUCOSE 96 mg/dL (74-106); MAGNESIUM 2.3 mg/dL (1.8-2.4); PHOSPHORUS 3.6 mg/dL (2.5-4.9); POTASSIUM 3.8 mmol/L (3.5-5.1); SODIUM SERUM 137 mmol/L (136-145); TOTAL PROTEIN, SERUM 6.9 g/dL (6.4-8.2); UREA NITROGEN, BLOOD 7 mg/dL (7-18)
[2019-12-01] MEDS: METOPROLOL TARTRATE 25 MG TABLET PO SCH (09:00)
[2019-12-01] MEDS: ISOSORBIDE DINITRATE (10MG) 10 MG TABLET PO SCH (09:00)
[2019-12-01] MEDS: BENAZEPRIL HCL 10 MG TABLET PO SCH (09:00)
[2019-12-01] MEDS: QUETIAPINE FUMARATE 25 MG TABLET PO SCH ×3 (09:10→17:45)
[2019-12-01] MEDS: NATEGLINIDE 60 MG TABLET PO SCH ×3 (09:10→17:45)
[2019-12-01] MEDS: CALCIUM CARBONATE 500 MG TAB.CHEW PO SCH (09:10)
[2019-12-01] MEDS: DIVALPROEX SODIUM 250 MG TABLET.DR PO SCH ×2 (09:11→21:44)
[2019-12-01] MEDS: LINAGLIPTIN 5 MG TABLET PO SCH (09:11)
[2019-12-01] MEDS: FOLIC ACID 1 MG TABLET PO SCH (09:11)
[2019-12-01] MEDS: PANTOPRAZOLE 40 MG TABLET.DR PO SCH ×2 (09:11→17:45)
[2019-12-01] MEDS: DOCUSATE SODIUM 100 MG CAPSULE PO SCH ×2 (09:11→17:45)
[2019-12-01] MEDS: MULTIVITAMINS,THERAGRAN 1 UDTAB TABLET PO SCH (09:11)
[2019-12-01] MEDS: MUPIROCIN OINT 2% 22 GM TUBE NS SCH ×2 (09:25→21:38)
--- NOTE | 2019-12-01 10:00 | NUR ---
m/s job foreman: notes am care rendered by staff. no distress noted. will continue to monitor.
--- NOTE | 2019-12-01 12:56 | NUR ---
m/s research associate professor: nephro f/u seen by dr. aprekh with orders. orders acknowledged.
[2019-12-01] MEDS: ENOXAPARIN SODIUM 30 MG/0.3 ML DISP.SYRIN SQ SCH (13:01)
--- NOTE | 2019-12-01 14:25 | NUR ---
m/s material cutter: notes noted right hand iv leaking, removed with tip intact. inserted new iv to right forearm, gauge #22. will continue to monitor.
[2019-12-01 16:00] VITALS: BP 118/62
--- NOTE | 2019-12-01 16:00 | NUR ---
m/s organizational psychologist: notes pt awake, but mostly quiet. no distress noted. reality orientation provided prn. will continue to monitor.
--- NOTE | 2019-12-01 18:00 | NUR ---
m/s optical manager: notes resting comfortable in bed. needs attended. no apparent distress noted. will continue to monitor.
--- NOTE | 2019-12-01 19:00 | NUR ---
m/s deposit refund clerk: notes report given to adelina (shahriar) for continuity of care.
--- NOTE | 2019-12-01 20:07 | NUR ---
RECEIVED IN BED EYES CLOSED MOVING HIS MOUTH THOUGH HER WERE CHEWING PLACED THE URINAL BETWEEN HIS LEGS IN AN ATTEMPT TO COLLECT ORDERED URINE HE PUSHES AT THE NURSE WHEN ATTEMPT TO TOUCH HIM OR REPOSITION HIM NONVERBAL AND DOESN'T OPEN HIS EYES SCDS ON HIS LEGS SEIZURE PRECAUTIONS
[2019-12-01 20:26] VITALS: BP 117/61
[2019-12-01 20:38] VITALS: BP 117/61
[2019-12-01] MEDS: SIMVASTATIN 20 MG TABLET PO SCH (21:22)
[2019-12-01] MEDS: MIRTAZAPINE 15 MG TABLET PO SCH (21:23)
[2019-12-01] MEDS: INSULIN GLARGINE, 100 UNIT/ML CARTRIDGE SQ SCH (21:44)
[2019-12-01] MEDS: IV 1/2NS 1000 ML 1,000 ML IV PRN (23:04)
[2019-12-02] MEDS: PIPERACILLIN /TAZOBACTAM 3.375 G in IV D5W 100 ML IV SCH ×3 (02:04→17:01)
[2019-12-02] MEDS: VANCOMYCIN 0.75 GM in IV D5W 250 ML IV SCH ×2 (05:40→17:51)
[2019-12-02] MEDS: BLOOD SUGAR DIAGNOSTIC 1 EACH STRIP IN SCH ×4 (05:47→21:05)
--- NOTE | 2019-12-02 06:30 | NUR ---
eyes open this AM pulls away from the nurse when she reaches for his arm. no sob this shift swallows w/o problems asp precautions no seizures this 12 hours fall precautions bed alarm on
--- NOTE | 2019-12-02 07:37 | NUR ---
MS RN OPENING NOTE PATIENT IN BED RESTING COMFORTABLY. PATIENT IN NO ACUTE DISTRESS. NO SOB NOTED. PATIENT BREATHING IS EVEN AND UNLABORED. PATIENT BED ALARM IS ON. SAFETY PRECAUTIONS IN PLACE. PATIENT BED IS LOCKED AND IN LOWEST POSITION. CALL LIGHT WITHIN REACH. WILL CONTINUE TO MONITOR.
[2019-12-02 07:39] LABS: BASOPHILS # (AUTO) 0.1 /CMM (0.0-0.2); BASOPHILS % (AUTO) 0.8 % (0.0-2.0); EOSINOPHILS % (AUTO) 5.2 % (0.0-6.0); HEMATOCRIT 33 % (39-51); HEMOGLOBIN 10.6 g/dL (13.5-17.5); LYMPHOCYTES # (AUTO) 1.9 /CMM (0.8-4.8); LYMPHOCYTES % (AUTO) 22.8 % (20.0-44.0); MEAN CORPUSCULAR HGB CONC 32 g/dl (31.0-36.0); MEAN CORPUSCULAR VOLUME 77 fL (80-96); MONOCYTES # (AUTO) 0.7 /CMM (0.1-1.30); MONOCYTES % (AUTO) 8.2 % (2.0-12.0); NEUTROPHILS # (AUTO) 5.2 /CMM (1.8-8.9); PLATELET COUNT (AUTO) 329 /CMM (150-450); RED BLOOD CELL COUNT(AUTO) 4.32 MIL/uL (4.5-6.0); WHITE BLOOD COUNT (AUTO) 8.3 K/uL (4.3-11.0)
[2019-12-02 08:14] LABS: ALBUMIN 2.3 g/dL (3.4-5.0); BILIRUBIN,TOTAL 0.5 mg/dL (0.2-1.0); CALCIUM, SERUM 8.3 mg/dL (8.5-10.1); CREATININE 1.2 mg/dL (0.6-1.3); MAGNESIUM 2.3 mg/dL (1.8-2.4); TOTAL PROTEIN, SERUM 7.2 g/dL (6.4-8.2)
[2019-12-02] MEDS: MULTIVITAMINS,THERAGRAN 1 UDTAB TABLET PO SCH (08:43)
[2019-12-02] MEDS: ISOSORBIDE DINITRATE (10MG) 10 MG TABLET PO SCH (08:43)
[2019-12-02] MEDS: DOCUSATE SODIUM 100 MG CAPSULE PO SCH ×2 (08:43→16:50)
[2019-12-02] MEDS: BENAZEPRIL HCL 10 MG TABLET PO SCH (08:44)
[2019-12-02] MEDS: CALCIUM CARBONATE 500 MG TAB.CHEW PO SCH (08:44)
[2019-12-02] MEDS: DIVALPROEX SODIUM 250 MG TABLET.DR PO SCH ×2 (08:44→20:30)
[2019-12-02] MEDS: LINAGLIPTIN 5 MG TABLET PO SCH (08:44)
[2019-12-02] MEDS: QUETIAPINE FUMARATE 25 MG TABLET PO SCH ×3 (08:44→16:51)
[2019-12-02] MEDS: PANTOPRAZOLE 40 MG TABLET.DR PO SCH ×2 (08:44→16:50)
[2019-12-02] MEDS: FOLIC ACID 1 MG TABLET PO SCH (08:44)
[2019-12-02] MEDS: METOPROLOL TARTRATE 25 MG TABLET PO SCH (08:45)
[2019-12-02] MEDS: NATEGLINIDE 60 MG TABLET PO SCH ×3 (08:45→16:51)
[2019-12-02] MEDS: MUPIROCIN OINT 2% 22 GM TUBE NS SCH ×2 (08:47→21:16)
--- NOTE | 2019-12-02 12:05 | NUR ---
MS RN NOTE PATIENT BLOOD SUGAR IS 126. NO INSULIN COVERAGE NEEDED PER PROTOCOL.
[2019-12-02] MEDS: ENOXAPARIN SODIUM 30 MG/0.3 ML DISP.SYRIN SQ SCH (12:08)
--- NOTE | 2019-12-02 16:47 | NUR ---
MS RN NOTE PATIENT BLOOD SUGAR IS 118. NO INSULIN COVERAGE NEEDED PER PROTOCOL.
--- NOTE | 2019-12-02 17:50 | NUR ---
MS RN NOTE SPOKE WITH PHARMACY, AND INFORMED THEM THAT VANCO TROUGH 22. HOLD 1800 DOSE .PER PHARMACY AND THEY WILL READJUST
--- NOTE | 2019-12-02 19:00 | NUR ---
MS RN CLOSING NOTE PATIENT IN BED RESTING COMFORTABLY. PATIENT IN NO ACUTE DISTRESS. NO SOB NOTED. PATIENT BREATHING IS EVEN AND UNLABORED. PATIENT BED ALARM IS ON. PATIENT KEPT CLEAN, DRY, AND COMFORTABLE THROUGHOUT SHIFT. SAFETY PRECAUTIONS IN PLACE. PATIENT BED IS LOCKED AND IN LOWEST POSITION. CALL LIGHT WITHIN REACH. WILL ENDORSE CARE TO PM SHIFT FOR BANDAR.
--- NOTE | 2019-12-02 19:41 | NUR ---
MS/RN OPENING NOTE Patient asleep in be, a/o x1, bedbound. Breathing even, clear, unlabored, on room air. No signs of acute distress or SOB. Patient does not appear to be in pain. Skin warm, pink, dry, intact. IV site right wrist 22g and LFA 22g, patent and intact, no signs of infiltration. Abdomen round, soft, non-tender. BS active. Urine output clear, yellow, without difficulty. Bed in low position, wheels locked, side rails up x2, call light within reach.
[2019-12-02 20:00] VITALS: BP 117/45
[2019-12-02] MEDS: MIRTAZAPINE 15 MG TABLET PO SCH (21:04)
[2019-12-02] MEDS: SIMVASTATIN 20 MG TABLET PO SCH (21:04)
[2019-12-02] MEDS: INSULIN GLARGINE, 100 UNIT/ML CARTRIDGE SQ SCH (21:08)
[2019-12-02] MEDS: INSULIN REGULAR, HUMAN 100 UNIT/ML 3 ML VIAL SQ PRN (21:09)
[2019-12-03] MEDS ORDERED: VANCOMYCIN 0.75 GM in IV D5W 250 ML IV SCH ×2
[2019-12-03] MEDS: PIPERACILLIN /TAZOBACTAM 3.375 G in IV D5W 100 ML IV SCH ×2 (01:18→10:08)
[2019-12-03] MEDS: IV 1/2NS 1000 ML 1,000 ML IV PRN (05:55)
--- NOTE | 2019-12-03 06:02 | NUR ---
MS/RN CLOSING NOTE Patient asleep in be, a/o x1, bedbound. Breathing even, clear, unlabored, on room air. No signs of acute distress or SOB. Skin warm, pink, dry, intact. IV site left wrist 22g and RFA 22g, patent and intact, no signs of infiltration, running 1/2 NS @ 75 ml/hr. Urine output clear, yellow, without difficulty. All scheduled medications administered, patient tolerated well. Bed in low position, wheels locked, side rails up x2, call light within reach.
[2019-12-03 06:35] LABS: APPEARANCE,URINE CLEAR (CLEAR); BILIRUBIN,URINE NEGATIVE (NEGATIVE); BLOOD, URINE TRACE-INTA Ery/uL (NEGATIVE); COLOR,URINE YELLOW (YELLOW); KETONES,URINE NEGATIVE (NEGATIVE); LEUKOCYTE ESTERASE ,URINE SMALL (NEGATIVE); NITRITE, URINE NEGATIVE (NEGATIVE); PH,URINE 6.5 (5.0-8.0); PROTEIN,URINE NEGATIVE (NEGATIVE); UGLUCOSE NEGATIVE (NEGATIVE); UROBILINOGEN,URINE 0.2 EU/dL (0.2)
[2019-12-03 06:53] LABS: CREATININE, URINE 58.5 MG/DL (30.0-125.0); URINE TOTAL PROTEIN 24.4 mg/dL (0-11.9)
[2019-12-03 07:27] LABS: CALCIUM, SERUM 8.5 mg/dL (8.5-10.1); CREATININE 1.2 mg/dL (0.6-1.3); POTASSIUM 3.2 mmol/L (3.5-5.1)
[2019-12-03 07:28] LABS: BACTERIA,URINE Rare /HPF (None Seen); SQUAMOUS EPITHELIAL CELL,UR Few /HPF (None Seen)
[2019-12-03] MEDS: BLOOD SUGAR DIAGNOSTIC 1 EACH STRIP IN SCH ×2 (07:38→12:00)
[2019-12-03 07:57] VITALS: BP 127/68
[2019-12-03 08:00] VITALS: BP 127/68
[2019-12-03] MEDS: DOCUSATE SODIUM 100 MG CAPSULE PO SCH (08:23)
[2019-12-03 08:24] VITALS: BP 127/68
[2019-12-03] MEDS: BENAZEPRIL HCL 10 MG TABLET PO SCH (08:24)
[2019-12-03] MEDS: ISOSORBIDE DINITRATE (10MG) 10 MG TABLET PO SCH (08:24)
[2019-12-03] MEDS: DIVALPROEX SODIUM 250 MG TABLET.DR PO SCH (08:24)
[2019-12-03] MEDS: MULTIVITAMINS,THERAGRAN 1 UDTAB TABLET PO SCH (08:24)
[2019-12-03] MEDS: NATEGLINIDE 60 MG TABLET PO SCH ×2 (08:24→13:03)
[2019-12-03] MEDS: FOLIC ACID 1 MG TABLET PO SCH (08:24)
[2019-12-03] MEDS: LINAGLIPTIN 5 MG TABLET PO SCH (08:24)
[2019-12-03] MEDS: QUETIAPINE FUMARATE 25 MG TABLET PO SCH ×2 (08:24→13:03)
[2019-12-03] MEDS: METOPROLOL TARTRATE 25 MG TABLET PO SCH (08:24)
[2019-12-03] MEDS: CALCIUM CARBONATE 500 MG TAB.CHEW PO SCH (08:25)
[2019-12-03] MEDS: MUPIROCIN OINT 2% 22 GM TUBE NS SCH (08:26)
[2019-12-03] MEDS: PANTOPRAZOLE 40 MG TABLET.DR PO SCH (08:51)
[2019-12-03 09:01] LABS: EOSINOPHIL,URINE None Seen
[2019-12-03 10:08] LABS: PTH, INTACT 31 pg/mL (15-65)
[2019-12-03] MEDS: POTASSIUM CHLORIDE 20 MEQ POWDER PACKET NG SCH ×2 (10:08→10:32)
--- NOTE | 2019-12-03 11:00 | NUR ---
Patient cleared for d/c to [facility] by
--- NOTE | 2019-12-03 11:30 | NUR ---
Patient noted with fever 101.0. notified and Tylenol ordered and administrated . Will continue to monitor Addendum: 12/03/19 at 1258 by ABBIE ENCARNACION RN Wrong patient. please discard
--- NOTE | 2019-12-03 12:58 | NUR ---
Report called to Cassandra PULIDO from [facility].
[2019-12-03] MEDS: ENOXAPARIN SODIUM 30 MG/0.3 ML DISP.SYRIN SQ SCH (13:04)
--- NOTE | 2019-12-03 14:30 | NUR ---
Patient cleared for d/c to SNF by MD. Patient is awake, demented, unable to follow simple commands. Breathing unlabored and even on room air, VS stable and at baselined.No skin issues found and d/c pictures are taken and placed to pt's chart. Patient has no belongings. Patient unable to learn and d/c instruction given to nurse from Facility. Medication reconciliation form was sent with d/c packet. IV lines removed and ID wrist band removed. Patient safely picked up by ambulance staff.
[2019-12-03 15:06] LABS: *SPE A/G RATIO 0.7 (0.7-1.7); *SPE ALBUMIN 2.5 g/dL (2.9-4.4); *SPE ALPHA-1-GLOBULIN 0.3 g/dL (0.0-0.4); *SPE ALPHA-2-GLOBULIN 1.1 g/dL (0.4-1.0); *SPE BETA GLOBULIN 0.8 g/dL (0.7-1.3); *SPE GLOBULIN, TOTAL 3.8 g/dL (2.2-3.9); *SPE M-SPIKE Not Observed g/dL (Not Observed); *SPEGAMMA GLOBULIN 1.5 g/dL (0.4-1.8)
== END 2019-12-03 14:40 | DRG 193 ==
LOC: ER 08:01 → TELE2 10:28 → TELE 11-28 18:12 → MED 11-30 08:12
PROVIDERS: ADMIT Internal Medicine; ATTEND Internal Medicine
DX: J15.9 Unspecified bacterial pneumonia (principal); G93.41 Metabolic encephalopathy; N39.0 Urinary tract infection, site not specified; N17.9 Acute kidney failure, unspecified; E78.5 Hyperlipidemia, unspecified; E11.9 Type 2 diabetes mellitus without complications; F02.80 Dementia in other diseases classified elsewhere, unspecified severity, without behavioral disturbance, psychotic disturbance, mood disturbance, and anxiety; G30.9 Alzheimer's disease, unspecified; I25.10 Atherosclerotic heart disease of native coronary artery without angina pectoris; K21.9 Gastro-esophageal reflux disease without esophagitis; F32.9 Major depressive disorder, single episode, unspecified; Z79.4 Long term (current) use of insulin; Z79.899 Other long term (current) drug therapy; I50.9 Heart failure, unspecified; I11.0 Hypertensive heart disease with heart failure; G40.909 Epilepsy, unspecified, not intractable, without status epilepticus; R13.10 Dysphagia, unspecified; E87.6 Hypokalemia; I70.0 Atherosclerosis of aorta; Z86.73 Personal history of transient ischemic attack (TIA), and cerebral infarction without residual deficits; Z22.322 Carrier or suspected carrier of Methicillin resistant Staphylococcus aureus; F39 Unspecified mood [affective] disorder
CPT/HCPCS: 36415; 70450-TC; 71045-TC; 80048-TC; 80053-TC; 80061-TC; 80076-TC; 80164-TC; 80202-TC; 81000-TC; 82140-TC; 82550-TC; 82570-TC; 82962-TC; 83605-TC; 83735-TC; 83970; 84100-TC; 84155; 84155-TC; 84165; 84300-TC; 84443-TC; 84484-TC; 85025-TC; 85730-TC; 87040-TC; 87081-TC; 87086-TC; 95819-TC; 97110-TC; 97116-TC; 97530-TC; A4349; C9803-CS; G0378; J1650; J1815; J1956; J2543; J3370; J3490; J7030; J7040; J7060; U0003-CS